=== PATIENT | female | born 1940 | race Caucasian/White ===

== ENCOUNTER 2016-11-03 07:41 | Day surgery (SDC) | payer MEDICARE, OTHER ==
[2016-11-03] MEDS ORDERED: fentaNYL 100 MCG/2 ML SDV ONE (08:13)
[2016-11-03] MEDS ORDERED: Propofol 200 MG/20 ML SDV ONE (08:13)
[2016-11-03] MEDS ORDERED: Lactated Ringers 1,000 ML IV SCH (08:30)
[2016-11-03 10:42] VITALS: BP 152/78
--- NOTE | 2016-11-04 07:14 | OR ---
DATE OF PROCEDURE: 11/03/2016 PREOPERATIVE DIAGNOSIS: History of colon polyps. POSTOPERATIVE DIAGNOSES: Diverticulosis and a small rectal polyp. PROCEDURE PERFORMED: Colonoscopy to the cecum with biopsy resection of a small rectal polyp. SURGEON: Dayo Monaco MD. ANESTHESIA: IV anesthesia with monitored anesthesia care. INDICATION: This is a 76-year-old white female who is referred for a colonoscopy because of a history of colon polyps. She says her last colonoscopic exam was done five years ago. I counseled her for the procedure including risks and alternatives, and she gave her informed consent to proceed. DESCRIPTION OF PROCEDURE: The patient was placed in the left lateral decubitus position. IV anesthesia was administered by the Anesthesia Service. Time-out was held. A rectal exam was performed, which was unremarkable. The flexible video Olympus colonoscope was introduced through her anus, up her rectum, and out her colon all way to the cecum. En route, we saw multiple left-sided diverticula. There was no bleeding or inflammation associated with any of them. Once the cecum was reached, the scope was slowly withdrawn examining the mucosa throughout. No additional mucosal abnormalities were noted until we reached the rectum. Here a small polyp was seen which was removed with the biopsy forceps. The scope was retroflexed in the rectum with the distal rectum appearing unremarkable save for some hemorrhoidal tissues. The scope was straightened and removed. She tolerated the procedure well. Dayo Monaco MD /[id number] MTDD
== END 2016-11-03 10:57 | disposition home or self-care (01) ==
LOC: JP.SDS 07:41
PROVIDERS: ATTEND Surgery
PROC: 0DBP8ZX Excision of Rectum, Via Natural or Artificial Opening Endoscopic, Diagnostic (ICD-10-PCS; principal; 2016-11-03)
DX: Z86.010 Personal history of colon polyps (principal); K57.30 Diverticulosis of large intestine without perforation or abscess without bleeding
CPT/HCPCS: 45380; J2704; J3010; J7120; 88305

== ENCOUNTER 2017-09-08 21:50 | Inpatient (IN) | payer MEDICARE, OTHER ==
[2017-09-08] MEDS ORDERED: Sodium Chloride 0.9% 1,000 ML IV SCH (23:15)
--- NOTE | 2017-09-08 23:16 | EDM.PDOC ---
ED HPI GENERAL MEDICAL PROBLEM - General Chief Complaint: Gastrointestinal Problem Stated Complaint: STOMACH CRAMPS/PASSING BLOOD Time Seen by Provider: 09/08/17 23:16 Source of Information: Reports: Patient History Limitations: Reports: No Limitations - History of Present Illness INITIAL COMMENTS - FREE TEXT/NARRATIVE: Pt arrived with a history of a bloody stool this afternoon nd she now has alot of lower abdomanal pain. She has not vomited. She has not had GI bleeding in the past. Onset: Today Duration: Hour(s): Location: Reports: Abdomen Associated Symptoms: Reports: No Other Symptoms - Related Data Allergies Allergy/AdvReac Type Severity Reaction Status Date / Time celecoxib [From Celebrex] Allergy Severe Airway Verified 09/08/17 22:52 Tightness Sulfa (Sulfonamide Allergy Severe Airway Verified 09/08/17 22:52 Antibiotics) Tightness Home Meds: Home Meds Captopril/Hydrochlorothiazide [Captopril-HCTZ 50-15 MG] 1 tab PO DAILY 03/25/13 [History] Levothyroxine [Synthroid] 88 mcg PO DAILY 03/25/13 [History] Naproxen Sodium [Aleve] 220 mg PO DAILY 03/25/13 [History] Simvastatin 20 mg PO BEDTIME 03/25/13 [History] metFORMIN [Glucophage] 500 mg PO DAILY 03/25/13 [History] Aspirin 81 mg PO DAILY 06/18/13 [History] Cholecalciferol 1,000 units PO DAILY 06/18/13 [History] Ciclopirox/Ure/Camph/Menth/Euc [Ciclopirox 8% Treatment Kit] 1 applic TOP BEDTIME 11/01/16 [History] Liraglutide [Saxenda] 1.2 mg SQ DAILY 11/01/16 [History] Furosemide [Lasix] 1 tab PO DAILY 09/08/17 [History] Past Medical History HEENT History: Reports: None Cardiovascular History: Reports: High Cholesterol, Hypertension Gastrointestinal History: Reports: Colon Polyp Genitourinary History: Reports: None [employer] CON[employer] History: Reports: Musculoskeletal History: Reports: Arthritis Neurological History: Reports: Other (See Below) Other Neuro History: Belles Palsy Endocrine/Metabolic History: Reports: Diabetes, Type II, Hypothyroidism, Obesity /BMI 30+ Oncologic (Cancer) History: Reports: Malignant Melanoma Dermatologic History: Reports: Melanoma - Infectious Disease History Infectious Disease History: Reports: Measles - Past Surgical History HEENT Surgical History: Reports: Cataract Surgery Cardiovascular Surgical History: Reports: None GI Surgical History: Reports: Colonoscopy Female Surgical History: Reports: D&C Neurological Surgical History: Reports: None Musculoskeletal Surgical History: Reports: Other (See Below) Other Musculoskeletal Surgeries/Procedures:: surgery right thumb 9 years ago Oncologic Surgical History: Reports: Other (See Below) Other Oncologic Surgeries/Procedures: lymph nodes removed under right arm with melanoma Dermatological Surgical History: Reports: Skin Biopsy Social & Family History - Family History Family Medical History: Noncontributory - Tobacco Use Smoking Status *Q: Never Smoker - Caffeine Use Caffeine Use: Reports: Coffee - Recreational Drug Use Recreational Drug Use: No ED ROS GENERAL - Review of Systems Review Of Systems: See Below Constitutional: Reports: Diaphoresis HEENT: Reports: No Symptoms Respiratory: Reports: No Symptoms Cardiovascular: Reports: No Symptoms Endocrine: Reports: No Symptoms GI/Abdominal: Reports: Abdominal Pain, Bloody Stool, Decreased Appetite : Reports: No Symptoms Musculoskeletal: Reports: No Symptoms Skin: Reports: No Symptoms Neurological: Reports: No Symptoms ED EXAM, GI/ABD - Physical Exam Exam: See Below Text/Narrative:: Pt arrived with acute lower abdomnal pain. She states she had a bloody stool this afternoon. She had an episode this am that she was sitting on the stool and she passed out. . She has severe lower abdomanal pain . This pain does seem more severe and she is more tender on the rt. Exam Limited By: No Limitations General Appearance: Alert, Moderate Distress Ears: Normal TMs Nose: Normal Inspection Throat/Mouth: Normal Inspection Neck: Normal Inspection Respiratory/Chest: No Respiratory Distress Cardiovascular: Regular Rate, Rhythm GI/Abdominal Exam: Tender, Other (more marked on the rt than the left. ) (Female) Exam: Deferred Rectal (Female) Exam: Deferred Back Exam: Normal Inspection Extremities: Normal Inspection Neurological: Alert, Oriented, Normal Cognition Psychiatric: Normal Affect Course - Vital Signs Last Recorded V/S: Last Vital Signs Temp 37.3 C 09/09/17 00:44 Pulse 89 09/09/17 00:44 Resp 20 09/09/17 00:44 BP 127/64 09/09/17 00:44 Pulse Ox 93 L 09/09/17 00:44 - Orders/Labs/Meds Orders: Active Orders 24 hr Category Date Time Status Abdomen Pelvis w Cont [CT] Stat Exams 09/08/17 23:42 Stop Req Abdomen Pelvis w Cont [CT] Stat Exams 09/09/17 00:07 Taken OCCULT BLOOD DIAGNOSTIC [OP] Stat Lab 09/08/17 23:15 Ordered UA W/MICROSCOPIC [URIN] Urgent Lab 09/08/17 23:03 Ordered Sodium Chloride 0.9% [Normal Saline] 1,000 ml Med 09/08/17 23:15 Active IV ASDIRECTED Sodium Chloride 0.9% [Normal Saline] 100 ml Med 09/09/17 00:15 Active IV ASDIRECTED Medication Orders Acetaminophen (Tylenol) 650 mg PO Q4H PRN PRN Reason: Pain (Mild 1-3)/fever Hydrocodone Bitart/Acetaminophen ([place] 325-5 Mg) 1 tab PO Q4H PRN PRN Reason: Pain (moderate 4-6) Albuterol (Proventil Neb Soln) 2.5 mg NEB Q4H PRN PRN Reason: Shortness Of Breath/wheezing Furosemide (Lasix) 20 mg PO DAILY [facility] Sodium Chloride (Normal Saline) 1,000 mls @ 999 mls/hr IV ASDIRECTED [facility] Last Admin: 09/08/17 23:28 Dose: 999 mls/hr Sodium Chloride (Normal Saline) 100 mls @ 3 mls/sec IV ASDIRECTED [facility] Last Admin: 09/09/17 00:35 Dose: 3 mls/sec Sodium Chloride (Normal Saline) 1,000 mls @ 125 mls/hr IV ASDIRECTED [facility] Last Admin: 09/09/17 01:26 Dose: 125 mls/hr Ciprofloxacin/Dextrose 400 mg/ (Premix) 200 mls @ 200 mls/hr IV Q12H [facility] Metronidazole 500 mg/ Premix 100 mls @ 100 mls/hr IV Q8H [facility] Last Admin: 09/09/17 01:27 Dose: 100 mls/hr Levothyroxine Sodium (Synthroid) 88 mcg PO DAILY [facility] Liraglutide (Victoza) 1.2 mg SUBCUT DAILY [facility] Lorazepam (Ativan) 1 mg IV Q6H PRN PRN Reason: Nausea/Vomiting Morphine Sulfate (Morphine) 2 mg IVPUSH Q2H PRN PRN Reason: Pain (severe 7-10) Non-Formulary Medication (Captopril/Hydrochlorothiazide [Captopril-Hctz 50-15 Mg ]) 1 tab PO DAILY [facility] Ondansetron HCl (Zofran Odt) 4 mg PO Q6H PRN PRN Reason: Nausea able to take PO Pantoprazole Sodium (Protonix Iv) 40 mg IV Q12H [facility] Last Admin: 09/09/17 01:27 Dose: 40 mg Zolpidem Tartrate (Ambien) 5 mg PO BEDTIME PRN PRN Reason: Sleep Labs: Laboratory Tests 09/08/17 09/08/17 09/08/17 Range/Units 23:14 23:14 23:14 WBC 15.0 H (4.5-11.0) K/uL RBC 4.75 (3.30-5.50) M/uL Hgb 14.0 (12.0-15.0) g/dL Hct 41.8 (36.0-48.0) % MCV 88 (80-98) fL MCH 30 (27-31) pg MCHC 34 (32-36) % Plt Count 303 (150-400) K/uL Neut % (Auto) 80 H (36-66) % Lymph % (Auto) 10 L (24-44) % [place] % (Auto) 9 H (2-6) % Eos % (Auto) 1 L (2-4) % Baso % (Auto) 0 (0-1) % Sodium 137 L (140-148) mmol/L Potassium 3.6 (3.6-5.2) mmol/L Chloride 100 (100-108) mmol/L Carbon Dioxide 29 (21-32) mmol/L Anion Gap 11.6 (5.0-14.0) mmol/L BUN 18 (7-18) mg/dL Creatinine 1.0 (0.6-1.0) mg/dL Est Cr Clr Drug Dosing 33.30 mL/min Estimated GFR (MDRD) 54 L (>60) Glucose 150 H (74-106) mg/dL Calcium 8.4 L (8.5-10.1) mg/dL Total Bilirubin 0.8 (0.2-1.0) mg/dL AST 25 (15-37) U/L ALT 33 (12-78) U/L Alkaline Phosphatase 77 (46-116) U/L C-Reactive Protein 2.05 H (0.0-0.3) mg/dL Total Protein 7.0 (6.4-8.2) g/dL Albumin 3.2 L (3.4-5.0) g/dL Globulin 3.8 H (2.3-3.5) g/dL Albumin/Globulin Ratio 0.8 L (1.2-2.2) Meds: Medications Generic Name Dose Route Start Last Admin Trade Name Freq PRN Reason Stop Dose Admin Acetaminophen 650 mg 09/09/17 01:00 Tylenol PO Q4H PRN Pain (Mild 1-3)/fever Hydrocodone Bitart/Acetaminophen 1 tab 09/09/17 01:00 [place] 325-5 Mg PO Q4H PRN Pain (moderate 4-6) Albuterol 2.5 mg 09/09/17 01:00 Proventil Neb Soln NEB Q4H PRN Shortness Of Breath/wheezing Furosemide 20 mg 09/09/17 09:00 Lasix PO DAILY [facility] Sodium Chloride 1,000 mls @ 999 mls/hr 09/08/17 23:15 09/08/17 23:28 Normal Saline IV 999 mls/hr ASDIRECTED [facility] Administration Sodium Chloride 100 mls @ 3 mls/sec 09/09/17 00:15 09/09/17 00:35 Normal Saline IV 3 mls/sec ASDIRECTED [facility] Administration Sodium Chloride 1,000 mls @ 125 mls/hr 09/09/17 01:00 09/09/17 01:26 Normal Saline IV 125 mls/hr ASDIRECTED [facility] Administration Ciprofloxacin/Dextrose 400 mg/ 200 mls @ 200 mls/hr 09/09/17 01:15 Premix IV Q12H [facility] Metronidazole 500 mg/ Premix 100 mls @ 100 mls/hr 09/09/17 01:15 09/09/17 01: 27 IV 100 mls/hr Q8H [facility] Administration Levothyroxine Sodium 88 mcg 09/09/17 09:00 Synthroid PO DAILY [facility] Liraglutide 1.2 mg 09/09/17 09:00 Victoza SUBCUT DAILY [facility] Lorazepam 1 mg 09/09/17 01:00 Ativan IV Q6H PRN Nausea/Vomiting Morphine Sulfate 2 mg 09/09/17 01:00 Morphine IVPUSH Q2H PRN Pain (severe 7-10) Non-Formulary Medication 1 tab 09/09/17 09:00 Captopril/Hydrochlorothiazide [Captopril-Hctz 50-15 Mg] PO DAILY [facility] Ondansetron HCl 4 mg 09/09/17 01:00 Zofran Odt PO Q6H PRN Nausea able to take PO Pantoprazole Sodium 40 mg 09/09/17 01:00 09/09/17 01:27 Protonix Iv IV 40 mg Q12H [facility] Administration Zolpidem Tartrate 5 mg 09/09/17 01:00 Ambien PO BEDTIME PRN Sleep Discontinued Medications Generic Name Dose Route Start Last Admin Trade Name Freq PRN Reason Stop Dose Admin Hydromorphone HCl 0.5 mg 09/08/17 23:43 09/08/17 23:54 Dilaudid IVPUSH 09/08/17 23:44 0.5 mg ONETIME ONE Administration Iopamidol 150 ml 09/09/17 00:15 09/09/17 00:45 Isovue-300 (61%) IV 150 ml . DIRECTED [facility] Administration Ondansetron HCl 4 mg 09/08/17 23:43 09/08/17 23:54 Zofran IVPUSH 09/08/17 23:44 4 mg ONETIME ONE Administration - Re-Assessments/Exams Free Text/Narrative Re-Assessment/Exam: 09/09/17 01:37 pt has a elevated wbc. Her cat scan did reveal colitis or inflamitory bowel diseas.e Departure - Departure Time of Disposition: 01:38 Disposition: Admitted As Inpatient 65 Condition: Fair Clinical Impression: Bleeding, Colitis - Discharge Information - My Orders Last 24 Hours: My Active Orders 09/08/17 23:03 UA W/MICROSCOPIC [URIN] Urgent 09/08/17 23:15 OCCULT BLOOD DIAGNOSTIC [OP] Stat Sodium Chloride 0.9% [Normal Saline] 1,000 ml IV ASDIRECTED 09/08/17 23:42 Abdomen Pelvis w Cont [CT] Stat 09/09/17 00:07 Abdomen Pelvis w Cont [CT] Stat 09/09/17 00:15 Sodium Chloride 0.9% [Normal Saline] 100 ml IV ASDIRECTED - Assessment/Plan Last 24 Hours: My Active Orders 09/08/17 23:03 UA W/MICROSCOPIC [URIN] Urgent 09/08/17 23:15 OCCULT BLOOD DIAGNOSTIC [OP] Stat Sodium Chloride 0.9% [Normal Saline] 1,000 ml IV ASDIRECTED 09/08/17 23:42 Abdomen Pelvis w Cont [CT] Stat 09/09/17 00:07 Abdomen Pelvis w Cont [CT] Stat 09/09/17 00:15 Sodium Chloride 0.9% [Normal Saline] 100 ml IV ASDIRECTED
[2017-09-08] MEDS ORDERED: HYDROmorphone 0.5 MG/0.5 ML Syringe IVPUSH ONE (23:43)
[2017-09-08] MEDS ORDERED: Ondansetron 4 MG/2 ML SDV IVPUSH ONE (23:43)
[2017-09-09] MEDS ORDERED: Sodium Chloride 0.9% 100 ML IV SCH (00:15)
[2017-09-09] MEDS ORDERED: Iopamidol 612 MG/ML 150 ML Bottle IV SCH (00:15)
--- NOTE | 2017-09-09 00:48 | PCM.HP ---
H&P History of Present Illness - General Date of Service: 09/09/17 Admit Problem/Dx: Admission Diagnosis/Problem Admission Diagnosis/Problem Gastrointestinal hemorrhage Source of Information: Patient (00), Family () History Limitations: Reports: No Limitations - History of Present Illness Initial Comments - Free Text/Narative: Gastrointestinal hemorrhage: This is a 77-year-old feel presents emergency room with her , reports this morning while woke up at 7:30am had severe stomach pain and cramping, went to the bathroom to sit on the toilet and fainted did not occur any injury from the fainting. Stool at that time was normal color. Then at 8 PM this evening and had a bloody stool. Her stomach feels painful, cramping, and mild nausea. She reports no vomiting. Reports colonoscopy 2 years ago with polyps. Reports no cancer. Onset of Symptoms: Reports: Today, Sudden Symptom Onset Date: 09/08/17 Duration of Symptoms: Reports: Hour(s): Location: Reports: Abdomen Quality: Reports: Other (Cramping, pain.) Severity: Severe Improves with: Reports: None Worsens with: Reports: None Context: Reports: Other (Rectal bleeding.) Associated Symptoms: Reports: Nausea/Vomiting - Related Data Allergies/Adverse Reactions: Allergies Allergy/AdvReac Type Severity Reaction Status Date / Time celecoxib [From Celebrex] Allergy Severe Airway Verified 09/08/17 22:52 Tightness Sulfa (Sulfonamide Allergy Severe Airway Verified 09/08/17 22:52 Antibiotics) Tightness Home Medications: Home Meds Captopril/Hydrochlorothiazide [Captopril-HCTZ 50-15 MG] 1 tab PO DAILY 03/25/13 [History] Levothyroxine [Synthroid] 88 mcg PO DAILY 03/25/13 [History] Naproxen Sodium [Aleve] 220 mg PO DAILY 03/25/13 [History] Simvastatin 20 mg PO BEDTIME 03/25/13 [History] metFORMIN [Glucophage] 500 mg PO DAILY 03/25/13 [History] Aspirin 81 mg PO DAILY 06/18/13 [History] Cholecalciferol 1,000 units PO DAILY 06/18/13 [History] Ciclopirox/Ure/Camph/Menth/Euc [Ciclopirox 8% Treatment Kit] 1 applic TOP BEDTIME 11/01/16 [History] Liraglutide [Saxenda] 1.2 mg SQ DAILY 11/01/16 [History] Furosemide [Lasix] 1 tab PO DAILY 09/08/17 [History] Past Medical History HEENT History: Reports: None Cardiovascular History: Reports: High Cholesterol, Hypertension Gastrointestinal History: Reports: Colon Polyp Genitourinary History: Reports: None 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: Musculoskeletal History: Reports: Arthritis Neurological History: Reports: Other (See Below) Other Neuro History: Belles Palsy Endocrine/Metabolic History: Reports: Diabetes, Type II, Hypothyroidism, Obesity /BMI 30+ Oncologic (Cancer) History: Reports: Malignant Melanoma Dermatologic History: Reports: Melanoma - Infectious Disease History Infectious Disease History: Reports: Measles - Past Surgical History HEENT Surgical History: Reports: Cataract Surgery Cardiovascular Surgical History: Reports: None GI Surgical History: Reports: Colonoscopy Female Surgical History: Reports: D&C Neurological Surgical History: Reports: None Musculoskeletal Surgical History: Reports: Other (See Below) Other Musculoskeletal Surgeries/Procedures:: surgery right thumb 9 years ago Oncologic Surgical History: Reports: Other (See Below) Other Oncologic Surgeries/Procedures: lymph nodes removed under right arm with melanoma Dermatological Surgical History: Reports: Skin Biopsy Social & Family History - Family History Family Medical History: Noncontributory - Tobacco Use Smoking Status *Q: Never Smoker - Caffeine Use Caffeine Use: Reports: Coffee - Recreational Drug Use Recreational Drug Use: No - Living Situation & Occupation Living situation: Reports: (Lives with her who is a senior network security architect in [place], [place]. Has 6 adult children, her daughter Abi is a RN nurse on second floor at [employer]) H&P Review of Systems - Review of Systems: Review Of Systems: See Below General: Reports: Fatigue HEENT: Reports: No Symptoms Pulmonary: Reports: No Symptoms Cardiovascular: Reports: No Symptoms Gastrointestinal: Reports: Abdominal Pain, Bloody Stool, Decreased Appetite, Nausea Genitourinary: Reports: No Symptoms Musculoskeletal: Reports: Back Pain (Low back pain) Skin: Reports: No Symptoms Psychiatric: Reports: No Symptoms Neurological: Reports: No Symptoms Hematologic/Lymphatic: Reports: No Symptoms Immunologic: Reports: No Symptoms Exam - Exam Exam: See Below - Vital Signs Vital Signs: Last Vital Signs Temp 37.3 C 09/08/17 22:55 Pulse 95 09/08/17 22:55 Resp 21 H 09/08/17 22:55 BP 145/72 H 09/08/17 22:55 Pulse Ox 95 09/08/17 22:55 Weight: 146.964 kg - Exam General: Alert, Oriented, 4 HEENT: PERRLA, Hearing Intact, Mucosa Moist & [place]holz, Nares Patent, Normal Nasal Septum, Posterior Pharynx Clear, Conjunctiva Clear, EOMI, EACs Clear, TMs Clear Neck: Supple Lungs: Clear to Auscultation, Normal Respiratory Effort Cardiovascular: Regular Rate, Regular Rhythm GI/Abdominal Exam: Normal Bowel Sounds, Soft, Tender (Generalized more pronounced in the left mid to lower abdomen. difficult to assess due to large size of abdomen and pannus.) (Female) Exam: Deferred Rectal (Female) Exam: Bloody Stool, Heme + Stool (Her children. Her rectal exam just notes any hemorrhoids or anything). No: Hemorrhoids Back Exam: Normal Inspection, Full Range of Motion Extremities: Normal Range of Motion, Non-Tender, Pedal Edema (Bilateral 2+ pitting edema, chronic.) Skin: Other (Lower legs with dry cracked skin. No signs of localized infection.) Neurological: Strength Equal Bilateral, Normal Speech, Normal Tone Neuro Extensive - Mental Status: Alert, Oriented x3, Normal Mood/Affect, Normal Cognition, Memory Intact Neuro Extensive - Motor, Sensory, Reflexes: CN II-XII Intact Psychiatric: Alert, Normal Affect, Normal Mood - Patient Data Lab Results Last 24 hrs: Laboratory Results - last 24 hr 09/08/17 09/08/17 09/08/17 Range/Units 23:14 23:14 23:14 WBC 15.0 H (4.5-11.0) K/uL RBC 4.75 (3.30-5.50) M/uL Hgb 14.0 (12.0-15.0) g/dL Hct 41.8 (36.0-48.0) % MCV 88 (80-98) fL MCH 30 (27-31) pg MCHC 34 (32-36) % Plt Count 303 (150-400) K/uL Neut % (Auto) 80 H (36-66) % Lymph % (Auto) 10 L (24-44) % [place] % (Auto) 9 H (2-6) % Eos % (Auto) 1 L (2-4) % Baso % (Auto) 0 (0-1) % Sodium 137 L (140-148) mmol/L Potassium 3.6 (3.6-5.2) mmol/L Chloride 100 (100-108) mmol/L Carbon Dioxide 29 (21-32) mmol/L Anion Gap 11.6 (5.0-14.0) mmol/L BUN 18 (7-18) mg/dL Creatinine 1.0 (0.6-1.0) mg/dL Est Cr Clr Drug Dosing 33.30 mL/min Estimated GFR (MDRD) 54 L (>60) Glucose 150 H (74-106) mg/dL Calcium 8.4 L (8.5-10.1) mg/dL Total Bilirubin 0.8 (0.2-1.0) mg/dL AST 25 (15-37) U/L ALT 33 (12-78) U/L Alkaline Phosphatase 77 (46-116) U/L C-Reactive Protein 2.05 H (0.0-0.3) mg/dL Total Protein 7.0 (6.4-8.2) g/dL Albumin 3.2 L (3.4-5.0) g/dL Globulin 3.8 H (2.3-3.5) g/dL Albumin/Globulin Ratio 0.8 L (1.2-2.2) Result Diagrams: 09/08/17 23:14 09/08/17 23:14 Asher Results Last 24 hrs: Microbiology 09/08/17 23:15 Stool Occult Blood (ASHER) - Final Stool / Feces - Problem List (1) Gastrointestinal bleed SNOMED Code(s): 40088754 ICD Code: K92.2 - GASTROINTESTINAL HEMORRHAGE, UNSPECIFIED Status: Acute Priority: High Current Visit: Yes Qualifiers: GI bleed type/associated pathology: unspecified gastrointestinal hemorrhage type Qualified Code(s): K92.2 - Gastrointestinal hemorrhage, unspecified (2) Diabetes mellitus type 2 in obese SNOMED Code(s): 16665691 ICD Code: E11.69 - TYPE 2 DIABETES MELLITUS WITH OTHER SPECIFIED COMPLICATION ; E66.9 - OBESITY, UNSPECIFIED Status: Acute Priority: Medium Current Visit: Yes (3) Colitis SNOMED Code(s): 85174153 ICD Code: K52.9 - NONINFECTIVE GASTROENTERITIS AND COLITIS, UNSPECIFIED Status: Acute Priority: High Current Visit: Yes Problem List Initiated/Reviewed/Updated: Yes Orders Last 24hrs: Active Orders 24 hr Category Date Time Status Patient Status Manage Transfer [TRANSFER] Routine ADT 09/09/17 00:31 Ordered Abdomen Pelvis w Cont [CT] Stat Exams 09/08/17 23:42 Stop Req Abdomen Pelvis w Cont [CT] Stat Exams 09/09/17 00:07 Ordered OCCULT BLOOD DIAGNOSTIC [OP] Stat Lab 09/08/17 23:15 Ordered UA W/MICROSCOPIC [URIN] Urgent Lab 09/08/17 23:03 Ordered Iopamidol [Isovue-300 (61%)] Med 09/09/17 00:15 Active 150 ml IV . DIRECTED Sodium Chloride 0.9% [Normal Saline] 1,000 ml Med 09/08/17 23:15 Active IV ASDIRECTED Sodium Chloride 0.9% [Normal Saline] 100 ml Med 09/09/17 00:15 Active IV ASDIRECTED Resuscitation Status Routine Resus Stat 09/09/17 00:33 Ordered Medication Orders Sodium Chloride (Normal Saline) 1,000 mls @ 999 mls/hr IV ASDIRECTED [facility] Last Admin: 09/08/17 23:28 Dose: 999 mls/hr Sodium Chloride (Normal Saline) 100 mls @ 3 mls/sec IV ASDIRECTED [facility] Iopamidol (Isovue-300 (61%)) 150 ml IV . DIRECTED [facility] Assessment/Plan Comment:: ASSESSMENT / PLAN Gastrointestinal hemorrhage: This is a 77-year-old feel presents emergency room with her , reports this morning while woke up at 7:30am had severe stomach pain and cramping, went to the bathroom to sit on the toilet and fainted did not occur any injury from the fainting. Stool at that time was normal color. Then at 8 PM this evening and had a bloody stool. Her stomach feels painful, cramping, and mild nausea. She reports no vomiting. Reports colonoscopy 2 years ago with polyps. Reports no cancer. Labs: WBC 15.0, hemoglobin 14.0, platelets 303, chemistries Na137, K+3.6, cl 100 , anion gap 11.6, bun 18, cr 1.0, GFR 54, glucose 150, protien 7, crp 2.05, Ca++ 8.4, ast 25, alt 33, alk phos 77, albumin 3.2, globulin 3.8, fecal occult stool positive Imaging : CT abdomen pelvis: Impression; moderate concentric wall thickening is present in the splenic flexure flexure, descending colon and proximal sigmoid colon. Findings likely due to infectious colitis or inflammatory bowel disease. Ischemic bowel disease can be considered in the appropriate clinical setting. The appendix is fluid-filled and distended measuring 13 mm. No wall thickening or surrounding inflammatory changes seen. A mucocele of the appendix is suspected, GI Bleed -Admit to [address] [place] [address] for further monitoring -IV Fluids for rehydration NS at 125 mL per hour -IV Protonix 40 mg every 12 hours -telemetry -Advise to notify nurses of any chest pain or other symptoms -Consult to Surgery Service for colonscopy and EGD -And a.m. labs: CBC, BMP Diabetes Type 2 -hold Metformin -daily blood glucose Colitis, inflammatory bowel disease -IV Cipro 400 mg every 12 hours -IV metronidazole 500 mg every 8 hours Maintenance issues -Orders home meds: order -Nutrition: NPO -Acharya catheter not indicated at this time -DVT: SCD -PPI: IV Protonix 40mg daily -consult OT for discharge planning -consult Spiritual CODE STATUS: FULL CODE Admission status: Admit to [address] [place] [address] Admission justification. This patient will be admitted for inpatient services and is medically appropriate meeting medical necessity for inpatient admission as outlined in my documentation. I reasonably expect the patient will require inpatient services that span. Time over 2 midnights. I reasonably expect this patient to be discharged or transferred within 96 hours after admission to the critical access hospital. Disposition: home Primary care provider: Salvador Mccartney Hospitalist: Dr. Hall
[2017-09-09] MEDS ORDERED: LORazepam 2 MG/ML SDV IV PRN (01:00)
[2017-09-09] MEDS ORDERED: Acetaminophen/HYDROcodone 325-5 MG Tab PO PRN (01:00)
[2017-09-09] MEDS ORDERED: Zolpidem 5 MG Tab PO PRN (01:00)
[2017-09-09] MEDS ORDERED: Morphine 2 MG/ML Syringe IVPUSH PRN (01:00)
[2017-09-09] MEDS ORDERED: Albuterol 0.083% 2.5 MG/3 ML Neb Soln NEB PRN (01:00)
[2017-09-09] MEDS ORDERED: Ondansetron 4 MG Tab.DIS PO PRN (01:00)
[2017-09-09] MEDS ORDERED: Acetaminophen 325 MG Tab PO PRN ×2 (01:00→05:34)
[2017-09-09] MEDS ORDERED: Ciprofloxacin in D5W 400 MG in Premix Bag 1 BAG IV SCH ×2 (01:15)
[2017-09-09] MEDS ORDERED: metroNIDAZOLE/Normal Saline 500 MG in Premix Bag 1 BAG IV SCH (01:15)
[2017-09-09] MEDS: Sodium Chloride 0.9% 1,000 ML IV SCH ×3 (01:26→22:53)
[2017-09-09] MEDS: Pantoprazole 40 MG Vial IV SCH ×2 (01:27→13:35)
[2017-09-09] MEDS ORDERED: Liraglutide (rDNA Origin) 0.6 MG/0.1 ML 3 ML Pen SUBCUT SCH ×2 (09:00)
[2017-09-09] MEDS ORDERED: Levothyroxine 88 MCG Tab PO SCH (09:00)
[2017-09-09] MEDS: Levothyroxine 88 MCG Tab PO SCH (10:44)
[2017-09-09] MEDS: metroNIDAZOLE/Normal Saline 500 MG in Premix Bag 1 BAG IV SCH ×2 (10:47→18:24)
[2017-09-09] MEDS: Hydrochlorothiazide 12.5 MG Cap PO SCH (10:47)
[2017-09-09] MEDS: Furosemide 20 MG Tab PO SCH (10:47)
[2017-09-09] MEDS: HYDROCHLOROTHIAZIDE PO SCH (10:47)
[2017-09-09] MEDS: CAPTOPRIL PO SCH (10:47)
[2017-09-09] MEDS: [UNRECOGNIZED DRUG - OTHER] PO SCH (10:47)
[2017-09-09] MEDS ORDERED: Glucose Gel 15 GM in 37.5 GM Tube PO PRN (13:13)
[2017-09-09] MEDS ORDERED: 50% Dextrose in Water 50 ML Syringe IV PRN (13:13)
--- NOTE | 2017-09-09 13:13 | PCM.PN ---
- General Info Date of Service: 09/09/17 Subjective Update: Ms. Bay is a 77-year-old woman who is admitted through the emergency department last night with abdominal pain and bloody diarrhea. Pain it started earlier in the day and progressively came worse during the day and associated with bloody diarrhea so she came in for further evaluation. She was found to be hemodynamically stable, hemoglobin was adequate, CT scan showed an area of inflammation in the descending colon extending into the sigmoid colon. She has been given IV fluids as well as IV antibiotic therapy with ciprofloxacin and metronidazole. Pain is modestly improved and she's had no further bloody stools since admission. Functional Status: Reports: Pain Controlled, Urinating - Review of Systems General: Reports: Weakness. Denies: Fever, Chills Pulmonary: Reports: No Symptoms Cardiovascular: Reports: No Symptoms Gastrointestinal: Reports: Abdominal Pain, Decreased Appetite, Diarrhea, Hematochezia. Denies: Nausea, Vomiting Genitourinary: Reports: No Symptoms - Patient Data Vitals - Most Recent: Last Vital Signs Temp 96.6 F 09/09/17 10:56 Pulse 79 09/09/17 10:56 Resp 16 09/09/17 10:56 BP 120/43 L 09/09/17 10:56 Pulse Ox 95 09/09/17 10:56 Weight - Most Recent: 324 lb 0.002 oz I&O - Last 24 Hours: Intake & Output 09/08/17 09/09/17 09/09/17 22:59 06:59 14:59 Intake Total 575 Output Total 400 400 Balance 175 -400 Lab Results Last 24 Hours: Laboratory Results - last 24 hr 09/08/17 09/08/17 09/08/17 Range/Units 23:03 23:14 23:14 WBC 15.0 H (4.5-11.0) K/uL RBC 4.75 (3.30-5.50) M/uL Hgb 14.0 (12.0-15.0) g/dL Hct 41.8 (36.0-48.0) % MCV 88 (80-98) fL MCH 30 (27-31) pg MCHC 34 (32-36) % Plt Count 303 (150-400) K/uL Neut % (Auto) 80 H (36-66) % Lymph % (Auto) 10 L (24-44) % [place] % (Auto) 9 H (2-6) % Eos % (Auto) 1 L (2-4) % Baso % (Auto) 0 (0-1) % Sodium (140-148) mmol/L Potassium (3.6-5.2) mmol/L Chloride (100-108) mmol/L Carbon Dioxide (21-32) mmol/L Anion Gap (5.0-14.0) mmol/L BUN (7-18) mg/dL Creatinine (0.6-1.0) mg/dL Est Cr Clr Drug Dosing mL/min Estimated GFR (MDRD) (>60) Glucose (74-106) mg/dL Calcium (8.5-10.1) mg/dL Total Bilirubin (0.2-1.0) mg/dL AST (15-37) U/L ALT (12-78) U/L Alkaline Phosphatase (46-116) U/L C-Reactive Protein 2.05 H (0.0-0.3) mg/dL Total Protein (6.4-8.2) g/dL Albumin (3.4-5.0) g/dL Globulin (2.3-3.5) g/dL Albumin/Globulin Ratio (1.2-2.2) Urine Color Yellow Urine Appearance Clear Urine pH 7.0 (4.5-8.0) Ur Specific Dafter 1.005 L (1.008-1.030) Urine Protein Negative (NEGATIVE) mg/dL Urine Glucose (UA) Normal (NEGATIVE) mg/dL Urine Ketones Negative (NEGATIVE) mg/dL Urine Occult Blood Negative (NEGATIVE) Urine Nitrite Negative (NEGATIVE) Urine Bilirubin Negative (NEGATIVE) Urine Urobilinogen Normal (NORMAL) mg/dL Ur Leukocyte Esterase Negative (NEGATIVE) Urine RBC Not seen (0-5) Urine WBC Not seen (0-5) Ur Epithelial Cells Not seen Amorphous Sediment Not seen Urine Bacteria Not seen Urine Mucus Not seen 09/08/17 09/09/17 09/09/17 Range/Units 23:14 04:45 05:50 WBC 13.9 H (4.5-11.0) K/uL RBC 4.46 (3.30-5.50) M/uL Hgb 13.3 (12.0-15.0) g/dL Hct 39.6 (36.0-48.0) % MCV 89 (80-98) fL MCH 30 (27-31) pg MCHC 34 (32-36) % Plt Count 278 (150-400) K/uL Neut % (Auto) 77 H (36-66) % Lymph % (Auto) 11 L (24-44) % [place] % (Auto) 11 H (2-6) % Eos % (Auto) 1 L (2-4) % Baso % (Auto) 0 (0-1) % Sodium 137 L 139 L (140-148) mmol/L Potassium 3.6 3.9 (3.6-5.2) mmol/L Chloride 100 102 (100-108) mmol/L Carbon Dioxide 29 27 (21-32) mmol/L Anion Gap 11.6 13.9 (5.0-14.0) mmol/L BUN 18 15 (7-18) mg/dL Creatinine 1.0 1.0 (0.6-1.0) mg/dL Est Cr Clr Drug Dosing 33.30 33.30 mL/min Estimated GFR (MDRD) 54 L 54 L (>60) Glucose 150 H 161 H (74-106) mg/dL Calcium 8.4 L 7.8 L (8.5-10.1) mg/dL Total Bilirubin 0.8 (0.2-1.0) mg/dL AST 25 (15-37) U/L ALT 33 (12-78) U/L Alkaline Phosphatase 77 (46-116) U/L C-Reactive Protein (0.0-0.3) mg/dL Total Protein 7.0 (6.4-8.2) g/dL Albumin 3.2 L (3.4-5.0) g/dL Globulin 3.8 H (2.3-3.5) g/dL Albumin/Globulin Ratio 0.8 L (1.2-2.2) Urine Color Urine Appearance Urine pH (4.5-8.0) Ur Specific Dafter (1.008-1.030) Urine Protein (NEGATIVE) mg/dL Urine Glucose (UA) (NEGATIVE) mg/dL Urine Ketones (NEGATIVE) mg/dL Urine Occult Blood (NEGATIVE) Urine Nitrite (NEGATIVE) Urine Bilirubin (NEGATIVE) Urine Urobilinogen (NORMAL) mg/dL Ur Leukocyte Esterase (NEGATIVE) Urine RBC (0-5) Urine WBC (0-5) Ur Epithelial Cells Amorphous Sediment Urine Bacteria Urine Mucus Asher Results Last 24 Hours: Microbiology 09/08/17 23:15 Stool Occult Blood (ASHER) - Final Stool / Feces Med Orders - Current: Current Medications Acetaminophen (Tylenol) 650 mg PO Q4H PRN PRN Reason: Pain Last Admin: 09/09/17 05:42 Dose: 650 mg Hydrocodone Bitart/Acetaminophen ([place] 325-5 Mg) 1 tab PO Q4H PRN PRN Reason: Pain (moderate 4-6) Albuterol (Proventil Neb Soln) 2.5 mg NEB Q4H PRN PRN Reason: Shortness Of Breath/wheezing Captopril (Capoten) 50 mg PO DAILY [facility] Last Admin: 09/09/17 10:45 Dose: 50 mg Furosemide (Lasix) 20 mg PO DAILY [facility] Last Admin: 09/09/17 10:47 Dose: 20 mg Hydrochlorothiazide (Hydrochlorothiazide) 12.5 mg PO DAILY [facility] Last Admin: 09/09/17 10:47 Dose: 12.5 mg Sodium Chloride (Normal Saline) 1,000 mls @ 125 mls/hr IV ASDIRECTED [facility] Last Admin: 09/09/17 13:00 Dose: 125 mls/hr Ciprofloxacin/Dextrose 400 mg/ (Premix) 200 mls @ 200 mls/hr IV Q12H [facility] Metronidazole 500 mg/ Premix 100 mls @ 100 mls/hr IV Q8H [facility] Last Admin: 09/09/17 10:47 Dose: 100 mls/hr Levothyroxine Sodium (Synthroid) 88 mcg PO ACBREAKFAST [facility] Last Admin: 09/09/17 10:44 Dose: 88 mcg Liraglutide (Victoza) 1.2 mg SUBCUT DAILY [facility] Lorazepam (Ativan) 1 mg IV Q6H PRN PRN Reason: Nausea/Vomiting Morphine Sulfate (Morphine) 2 mg IVPUSH Q2H PRN PRN Reason: Pain (severe 7-10) Non-Formulary Medication (Captopril/Hydrochlorothiazide [Captopril-Hctz 50-15 Mg ]) 1 tab PO DAILY [facility] Last Admin: 09/09/17 10:47 Dose: Not Given Ondansetron HCl (Zofran Odt) 4 mg PO Q6H PRN PRN Reason: Nausea able to take PO Pantoprazole Sodium (Protonix Iv) 40 mg IV Q12H [facility] Last Admin: 09/09/17 01:27 Dose: 40 mg Zolpidem Tartrate (Ambien) 5 mg PO BEDTIME PRN PRN Reason: Sleep Discontinued Medications Hydromorphone HCl (Dilaudid) 0.5 mg IVPUSH ONETIME ONE Stop: 09/08/17 23:44 Last Admin: 09/08/17 23:54 Dose: 0.5 mg Sodium Chloride (Normal Saline) 1,000 mls @ 999 mls/hr IV ASDIRECTED [facility] Last Admin: 09/08/17 23:28 Dose: 999 mls/hr Sodium Chloride (Normal Saline) 100 mls @ 3 mls/sec IV ASDIRECTED [facility] Last Admin: 09/09/17 00:35 Dose: 3 mls/sec Ciprofloxacin/Dextrose 400 mg/ (Premix) 200 mls @ 200 mls/hr IV Q12H [facility] Last Admin: 09/09/17 02:47 Dose: 200 mls/hr Metronidazole 500 mg/ Premix 100 mls @ 100 mls/hr IV Q8H [facility] Last Admin: 09/09/17 01:27 Dose: 100 mls/hr Iopamidol (Isovue-300 (61%)) 150 ml IV . DIRECTED [facility] Last Admin: 09/09/17 00:45 Dose: 150 ml Liraglutide (Victoza) 1.2 mg SUBCUT DAILY [facility] Last Admin: 09/09/17 10:48 Dose: 1.2 mg Ondansetron HCl (Zofran) 4 mg IVPUSH ONETIME ONE Stop: 09/08/17 23:44 Last Admin: 09/08/17 23:54 Dose: 4 mg - Exam Quality Assessment: DVT Prophylaxis General: Alert, Oriented, Cooperative, Mild Distress Lungs: Clear to Auscultation, Normal Respiratory Effort Cardiovascular: Regular Rate, Regular Rhythm, No Murmurs GI/Abdominal Exam: Soft, No Organomegaly, Tender. No: Distended, Guarding, Rigid, Rebound Extremities: Non-Tender, No Pedal Edema Skin: Warm, Dry, Intact - Problem List Review Problem List Initiated/Reviewed/Updated: Yes - My Orders Last 24 Hours: My Active Orders 09/10/17 05:00 BASIC METABOLIC PANEL,BMP [CHEM] Timed CBC WITH AUTO DIFF [HEME] Timed MAGNESIUM [CHEM] Timed - Plan Plan:: ASSESSMENT AND PLAN Ischemic colitis-most likely cause of current symptoms and findings, less likely infectious colitis -IV Fluids for rehydration NS at 125 mL per hour -IV Protonix 40 mg every 12 hours -Nothing by mouth -IV ciprofloxacin and metronidazole -Surgical consult Dr. Kay Diabetes Type 2 -hold Metformin -4 times a day glucometer -Low-dose sliding scale NovoLog Maintenance issues -Nutrition: NPO -Acharya catheter not indicated at this time -DVT: SCD -PPI: IV Protonix 40mg daily CODE STATUS: FULL CODE Admission status: Admit to [address] [place] [address] Admission justification. This patient will be admitted for inpatient services and is medically appropriate meeting medical necessity for inpatient admission as outlined in my documentation. I reasonably expect the patient will require inpatient services that span. Time over 2 midnights. I reasonably expect this patient to be discharged or transferred within 96 hours after admission to the [facility]. Disposition: home Primary care provider: Salvador Mccartney Hospitalist: Dr. Hall
[2017-09-09] MEDS: Ciprofloxacin in D5W 400 MG in Premix Bag 1 BAG IV SCH ×2 (13:34)
[2017-09-09] MEDS: Insulin Aspart 100 Units/ML 3 ML Pen SUBCUT SCH ×2 (18:21→21:40)
[2017-09-10] MEDS: Pantoprazole 40 MG Vial IV SCH (00:43)
[2017-09-10] MEDS: metroNIDAZOLE/Normal Saline 500 MG in Premix Bag 1 BAG IV SCH ×3 (00:44→16:31)
[2017-09-10] MEDS: Ciprofloxacin in D5W 400 MG in Premix Bag 1 BAG IV SCH ×4 (01:49→15:22)
[2017-09-10] MEDS: Insulin Aspart 100 Units/ML 3 ML Pen SUBCUT SCH ×4 (08:05→21:49)
[2017-09-10] MEDS: Levothyroxine 88 MCG Tab PO SCH (08:07)
[2017-09-10] MEDS ORDERED: Potassium Chloride 40 MEQ in Premix Bag 1 BAG IV ONE (08:18)
[2017-09-10] MEDS: CAPTOPRIL PO SCH (08:39)
[2017-09-10] MEDS: Hydrochlorothiazide 12.5 MG Cap PO SCH (08:39)
[2017-09-10] MEDS: Furosemide 20 MG Tab PO SCH (08:39)
[2017-09-10] MEDS: [UNRECOGNIZED DRUG - OTHER] PO SCH (08:39)
[2017-09-10] MEDS: HYDROCHLOROTHIAZIDE PO SCH (08:39)
[2017-09-10] MEDS: Liraglutide (rDNA Origin) 0.6 MG/0.1 ML 3 ML Pen SUBCUT SCH (08:41)
[2017-09-10] MEDS ORDERED: Potassium Chloride 20 MEQ Tab.ER PO ONE ×2 (08:45→17:00)
[2017-09-10] MEDS: Potassium Chloride 20 MEQ, Lidocaine 1% 2 ML in Sodium Chloride 0.9% 100 ML IV SCH ×2 (09:53→12:15)
[2017-09-10] MEDS: Sodium Chloride 0.9% 1,000 ML IV SCH (09:54)
--- NOTE | 2017-09-10 12:58 | PCM.PN ---
- General Info Date of Service: 09/10/17 Subjective Update: This patient has done well over the last 24 hours, no longer experiencing abdominal pain except with palpation. She has had no further bloody stools, vital signs have been stable and she has remained afebrile. Functional Status: Reports: Pain Controlled, Tolerating Diet, Ambulating, Urinating - Review of Systems General: Reports: Weakness. Denies: Fever, Chills Pulmonary: Reports: No Symptoms Cardiovascular: Reports: No Symptoms Gastrointestinal: Reports: Abdominal Pain. Denies: Difficulty Swallowing, Hematochezia, Melena, Nausea, Vomiting - Patient Data Vitals - Most Recent: Last Vital Signs Temp 97.1 F 09/10/17 10:24 Pulse 83 09/10/17 10:24 Resp 18 09/10/17 10:24 BP 117/66 09/10/17 10:24 Pulse Ox 94 L 09/10/17 10:24 Weight - Most Recent: 318 lb I&O - Last 24 Hours: Intake & Output 09/09/17 09/10/17 09/10/17 22:59 06:59 14:59 Intake Total 2624 324 Output Total 1000 600 Balance -1000 2023 324 Lab Results Last 24 Hours: Laboratory Results - last 24 hr 09/10/17 09/10/17 Range/Units 05:50 05:50 WBC 12.4 H (4.5-11.0) K/uL RBC 4.08 (3.30-5.50) M/uL Hgb 12.1 (12.0-15.0) g/dL Hct 37.0 (36.0-48.0) % MCV 91 (80-98) fL MCH 30 (27-31) pg MCHC 33 (32-36) % Plt Count 255 (150-400) K/uL Neut % (Auto) 73 H (36-66) % Lymph % (Auto) 13 L (24-44) % [place] % (Auto) 11 H (2-6) % Eos % (Auto) 2 (2-4) % Baso % (Auto) 0 (0-1) % Sodium 139 L (140-148) mmol/L Potassium 3.0 L (3.6-5.2) mmol/L Chloride 103 (100-108) mmol/L Carbon Dioxide 28 (21-32) mmol/L Anion Gap 11.0 (5.0-14.0) mmol/L BUN 12 (7-18) mg/dL Creatinine 0.9 (0.6-1.0) mg/dL Est Cr Clr Drug Dosing 37.00 mL/min Estimated GFR (MDRD) > 60 (>60) Glucose 109 H (74-106) mg/dL Calcium 7.5 L (8.5-10.1) mg/dL Magnesium 1.8 (1.8-2.4) mg/dL Med Orders - Current: Current Medications Acetaminophen (Tylenol) 650 mg PO Q4H PRN PRN Reason: Pain Last Admin: 09/09/17 05:42 Dose: 650 mg Hydrocodone Bitart/Acetaminophen ([place] 325-5 Mg) 1 tab PO Q4H PRN PRN Reason: Pain (moderate 4-6) Albuterol (Proventil Neb Soln) 2.5 mg NEB Q4H PRN PRN Reason: Shortness Of Breath/wheezing Captopril (Capoten) 50 mg PO DAILY [facility] Last Admin: 09/10/17 08:38 Dose: 50 mg Dextrose (Glutose 15) 15 gm PO ONETIME PRN PRN Reason: Hypoglycemia Dextrose/Water (Dextrose 50% In Water) 50 ml IV ONETIME PRN PRN Reason: Hypoglycemia Furosemide (Lasix) 20 mg PO DAILY [facility] Last Admin: 09/10/17 08:39 Dose: 20 mg Hydrochlorothiazide (Hydrochlorothiazide) 12.5 mg PO DAILY [facility] Last Admin: 09/10/17 08:39 Dose: 12.5 mg Ciprofloxacin/Dextrose 400 mg/ (Premix) 200 mls @ 200 mls/hr IV Q12H [facility] Last Admin: 09/10/17 01:49 Dose: 200 mls/hr Metronidazole 500 mg/ Premix 100 mls @ 100 mls/hr IV Q8H [facility] Last Admin: 09/10/17 08:39 Dose: 100 mls/hr Potassium Chloride 20 meq/Lidocaine HCl 2 ml/ Sodium Chloride 112 mls @ 56 mls/ hr IV Q2H [facility] Stop: 09/10/17 13:29 Last Admin: 09/10/17 12:15 Dose: 56 mls/hr Insulin Aspart (Novolog) 0 unit SUBCUT QIDACANDBED [facility]; Protocol Last Admin: 09/10/17 12:07 Dose: Not Given Levothyroxine Sodium (Synthroid) 88 mcg PO ACBREAKFAST [facility] Last Admin: 09/10/17 08:07 Dose: 88 mcg Liraglutide (Victoza) 1.2 mg SUBCUT DAILY [facility] Last Admin: 09/10/17 08:41 Dose: 1.2 units Lorazepam (Ativan) 1 mg IV Q6H PRN PRN Reason: Nausea/Vomiting Morphine Sulfate (Morphine) 2 mg IVPUSH Q2H PRN PRN Reason: Pain (severe 7-10) Non-Formulary Medication (Captopril/Hydrochlorothiazide [Captopril-Hctz 50-15 Mg ]) 1 tab PO DAILY [facility] Last Admin: 09/10/17 08:39 Dose: Not Given Ondansetron HCl (Zofran Odt) 4 mg PO Q6H PRN PRN Reason: Nausea able to take PO Pantoprazole Sodium (Protonix Iv) 40 mg IV Q12H [facility] Last Admin: 09/10/17 00:43 Dose: 40 mg Potassium Chloride (Klor-Con M20) 40 meq PO ONETIME ONE Stop: 09/10/17 17:01 Zolpidem Tartrate (Ambien) 5 mg PO BEDTIME PRN PRN Reason: Sleep Discontinued Medications Hydromorphone HCl (Dilaudid) 0.5 mg IVPUSH ONETIME ONE Stop: 09/08/17 23:44 Last Admin: 09/08/17 23:54 Dose: 0.5 mg Sodium Chloride (Normal Saline) 1,000 mls @ 999 mls/hr IV ASDIRECTED [facility] Last Admin: 09/08/17 23:28 Dose: 999 mls/hr Sodium Chloride (Normal Saline) 100 mls @ 3 mls/sec IV ASDIRECTED [facility] Last Admin: 09/09/17 00:35 Dose: 3 mls/sec Sodium Chloride (Normal Saline) 1,000 mls @ 125 mls/hr IV ASDIRECTED [facility] Last Admin: 09/10/17 09:54 Dose: 125 mls/hr Ciprofloxacin/Dextrose 400 mg/ (Premix) 200 mls @ 200 mls/hr IV Q12H [facility] Last Admin: 09/09/17 02:47 Dose: 200 mls/hr Metronidazole 500 mg/ Premix 100 mls @ 100 mls/hr IV Q8H [facility] Last Admin: 09/09/17 01:27 Dose: 100 mls/hr Iopamidol (Isovue-300 (61%)) 150 ml IV . DIRECTED [facility] Last Admin: 09/09/17 00:45 Dose: 150 ml Liraglutide (Victoza) 1.2 mg SUBCUT DAILY [facility] Last Admin: 09/09/17 10:48 Dose: 1.2 mg Ondansetron HCl (Zofran) 4 mg IVPUSH ONETIME ONE Stop: 09/08/17 23:44 Last Admin: 09/08/17 23:54 Dose: 4 mg Potassium Chloride (Klor-Con M20) 40 meq PO ONETIME ONE Stop: 09/10/17 08:46 Last Admin: 09/10/17 09:50 Dose: 40 meq - Exam Quality Assessment: DVT Prophylaxis General: Alert, Oriented, Cooperative, No Acute Distress Lungs: Clear to Auscultation, Normal Respiratory Effort Cardiovascular: Regular Rate, Regular Rhythm, No Murmurs GI/Abdominal Exam: Soft, No Organomegaly, Tender. No: Distended, Guarding, Rigid, Rebound Extremities: Non-Tender, Pedal Edema Skin: Warm, Dry, Intact - Problem List Review Problem List Initiated/Reviewed/Updated: Yes - My Orders Last 24 Hours: My Active Orders 09/09/17 13:13 Blood Glucose Check, Bedside [RC] QIDACANDBED Communication Order [RC] STAT Diabetes Education [RC] Click to Edit Notify Provider [RC] PRN Dextrose 50% in Water 50 ml IV ONETIME PRN Dextrose [Glutose 15] 15 gm PO ONETIME PRN 09/09/17 13:14 Discontinue Telemetry Monitoring [Cardiac Monitoring Discontinue] [RC] Click to Edit 09/09/17 17:00 Insulin Aspart [NovoLOG] See Protocol SUBCUT QIDACANDBED 09/10/17 09:30 Potassium Chloride 20 meq Lidocaine 1% [Xylocaine 1%] 2 ml Sodium Chloride 0.9 % [Normal Saline] 100 ml IV Q2H 09/10/17 12:55 Convert IV to Saline Lock [OM.PC] Routine 09/10/17 16:30 GLUCOSE POC LAB TO COLLECT [POC] QIDACANDBED 09/10/17 17:00 Potassium Chloride [Klor-Con M20] 40 meq PO ONETIME ONE 09/10/17 21:00 GLUCOSE POC LAB TO COLLECT [POC] QIDACANDBED 09/11/17 05:00 BASIC METABOLIC PANEL,BMP [CHEM] Timed CBC WITH AUTO DIFF [HEME] Timed 09/11/17 07:30 GLUCOSE POC LAB TO COLLECT [POC] QIDACANDBED 09/11/17 11:30 GLUCOSE POC LAB TO COLLECT [POC] QIDACANDBED 09/11/17 16:30 GLUCOSE POC LAB TO COLLECT [POC] QIDACANDBED 09/11/17 21:00 GLUCOSE POC LAB TO COLLECT [POC] QIDACANDBED 09/12/17 07:30 GLUCOSE POC LAB TO COLLECT [POC] QIDACANDBED 09/12/17 11:30 GLUCOSE POC LAB TO COLLECT [POC] QIDACANDBED 09/12/17 16:30 GLUCOSE POC LAB TO COLLECT [POC] QIDACANDBED 09/12/17 21:00 GLUCOSE POC LAB TO COLLECT [POC] QIDACANDBED 09/13/17 07:30 GLUCOSE POC LAB TO COLLECT [POC] QIDACANDBED 09/13/17 11:30 GLUCOSE POC LAB TO COLLECT [POC] QIDACANDBED 09/13/17 16:30 GLUCOSE POC LAB TO COLLECT [POC] QIDACANDBED 09/13/17 21:00 GLUCOSE POC LAB TO COLLECT [POC] QIDACANDBED 09/14/17 07:30 GLUCOSE POC LAB TO COLLECT [POC] QIDACANDBED 09/14/17 11:30 GLUCOSE POC LAB TO COLLECT [POC] QIDACANDBED - Plan Plan:: ASSESSMENT AND PLAN Ischemic colitis-most likely cause of current symptoms and findings, less likely infectious colitis -Saline lock IV -Full liquid diet -IV ciprofloxacin and metronidazole -Surgical consult Dr. Kay Diabetes Type 2 -hold Metformin, plan to resume tomorrow if tolerating diet -4 times a day glucometer -Low-dose sliding scale NovoLog Maintenance issues -Nutrition: Full liquid diet -Acharya catheter not indicated at this time -DVT: SCD -PPI: Not indicated CODE STATUS: FULL CODE Admission status: Admit to [address] [place] [address] Admission justification. This patient will be admitted for inpatient services and is medically appropriate meeting medical necessity for inpatient admission as outlined in my documentation. I reasonably expect the patient will require inpatient services that span. Time over 2 midnights. I reasonably expect this patient to be discharged or transferred within 96 hours after admission to the [facility]. Disposition: home Primary care provider: Salvador Mccartney Hospitalist: Dr. Hall
[2017-09-11] MEDS: metroNIDAZOLE/Normal Saline 500 MG in Premix Bag 1 BAG IV SCH ×2 (01:31→08:00)
[2017-09-11] MEDS: Ciprofloxacin in D5W 400 MG in Premix Bag 1 BAG IV SCH ×2 (03:25)
[2017-09-11] MEDS ORDERED: Pantoprazole 40 MG Tab.CR PO SCH (07:30)
[2017-09-11] MEDS: Levothyroxine 88 MCG Tab PO SCH (07:59)
[2017-09-11] MEDS: Liraglutide (rDNA Origin) 0.6 MG/0.1 ML 3 ML Pen SUBCUT SCH (10:10)
[2017-09-11] MEDS: Hydrochlorothiazide 12.5 MG Cap PO SCH (10:10)
[2017-09-11] MEDS: Furosemide 20 MG Tab PO SCH (10:10)
[2017-09-11] MEDS: Insulin Aspart 100 Units/ML 3 ML Pen SUBCUT SCH ×2 (10:10→12:31)
[2017-09-11 14:42] VITALS: BP 102/55
[2017-09-11] MEDS: HYDROCHLOROTHIAZIDE PO SCH (14:53)
[2017-09-11] MEDS: [UNRECOGNIZED DRUG - OTHER] PO SCH (14:53)
[2017-09-11] MEDS: CAPTOPRIL PO SCH (14:53)
--- NOTE | 2017-09-11 15:35 | PCM.DCSUM1 ---
Discharge Summary - Hospital Course Brief History: Ms. Bay is a 77-year-old woman who is admitted through the emergency department with cramping abdominal pain and bloody diarrhea secondary to ischemic colitis. - Discharge Data Discharge Date: 09/11/17 Discharge Disposition: Home, Self-Care 01 Condition: Fair - Discharge Diagnosis/Problem(s) (1) Acute ischemic colitis SNOMED Code(s): 42394416 ICD Code: K55.039 - ACUTE ISCHEMIA OF LARGE INTESTINE, EXTENT UNSPECIFIED Status: Acute Current Visit: Yes (2) Hematochezia SNOMED Code(s): 614706120 ICD Code: K92.1 - MELENA Status: Acute Current Visit: Yes (3) Diabetes mellitus type 2 in obese SNOMED Code(s): 32495184 ICD Code: E11.69 - TYPE 2 DIABETES MELLITUS WITH OTHER SPECIFIED COMPLICATION ; E66.9 - OBESITY, UNSPECIFIED Status: Chronic Priority: Medium Current Visit: Yes (4) Morbid obesity with BMI of 60.0-69.9, adult SNOMED Code(s): 197903535 ICD Code: E66.01 - MORBID (SEVERE) OBESITY DUE TO EXCESS CALORIES; Z68.44 - BODY MASS INDEX (BMI) 60.0-69.9, ADULT Status: Chronic Current Visit: No - Patient Summary/Data Consults: Consultations 09/09/17 01:00 Consult to Physician [CONS] Routine Consulting Provider: Raj Kay Call Completed to Consulting Physician: No: needs colonscopy/EGD Reason for Consult: GI Bleed Special Instructions: Consult to Spiritual Care [CONS] Routine OT Evaluation and Treatment [CONS] Routine Please Evaluate and Treat. OT Reason for Consult: Discharge Planning This query below is only for informational purposes and is not editable. Hospital Course: This patient is a 77-year-old woman who presented to the emergency room with lower abdominal pain and bloody diarrhea. White blood cell count was elevated at 14,000, hemoglobin within normal range, CT scan of the abdomen showed area of inflammation in the descending and proximal sigmoid colon, consistent with infectious etiology versus ischemic colitis. Symptoms began on the morning of admission with cramping abdominal pain that gradually became more intense throughout the day, in the evening prior to presenting to the emergency department she had a bloody bowel movement. She was admitted to the hospital and given IV fluids for hydration and kept nothing by mouth. Pain medication was given as needed. She had no further bloody stools and remained hemodynamically stable with a stable hemoglobin throughout her hospital course. She was started on IV antibiotic therapy with Flagyl and ciprofloxacin at the time of admission. Over the next few days her abdominal pain improved significantly but had not totally resolved by the time of discharge. She had no pain at rest, but did feel pain with palpation. She was seen and evaluated by Dr. Kay for surgical consult, he agreed with conservative management. Prior to discharge she had tolerated a soft low residue diet without difficulty. Activity will be as tolerated and she will remain on a soft low residue diet over the next few weeks. She should take a probiotic twice daily over the next month and will be prescribed oral antibiotic therapy with Flagyl and ciprofloxacin for an additional 5 days. Follow-up appointment will be scheduled with primary care provider within one week and a follow-up appointment should be scheduled with Dr. Kay in 2 weeks. - Patient Instructions Diet: GI Soft/Low Residue/Low Fiber Activity: As Tolerated Other/Special Instructions: Please schedule follow-up appointment with primary care provider within one week. Please have the patient for An [id number] probiotic intake twice daily for the next month. - Discharge Plan Prescriptions/Med Rec: Ciprofloxacin HCl [Cipro] 500 mg PO BID #10 tablet metroNIDAZOLE [Flagyl] 500 mg PO Q8H #15 tab Home Medications: Home Meds Captopril/Hydrochlorothiazide [Captopril-HCTZ 50-15 MG] 1 tab PO DAILY 03/25/13 [History] Levothyroxine [Synthroid] 88 mcg PO DAILY 03/25/13 [History] Naproxen Sodium [Aleve] 220 mg PO DAILY 03/25/13 [History] Simvastatin 20 mg PO BEDTIME 03/25/13 [History] metFORMIN [Glucophage] 500 mg PO DAILY 03/25/13 [History] Aspirin 81 mg PO DAILY 06/18/13 [History] Cholecalciferol 1,000 units PO DAILY 06/18/13 [History] Ciclopirox/Ure/Camph/Menth/Euc [Ciclopirox 8% Treatment Kit] 1 applic TOP BEDTIME 11/01/16 [History] Liraglutide [Saxenda] 1.2 mg SQ DAILY 11/01/16 [History] Furosemide [Lasix] 1 tab PO DAILY 09/08/17 [History] Ciprofloxacin HCl [Cipro] 500 mg PO BID #10 tablet 09/11/17 [Rx] metroNIDAZOLE [Flagyl] 500 mg PO Q8H #15 tab 09/11/17 [Rx] Patient Handouts: Soft-Food Eating Plan, Metronidazole tablets or capsules Referrals: Melina Mccartney PA-C [Primary Care Provider] - - Discharge Summary/Plan Comment DC Time >30 min.: No - Patient Data Vitals - Most Recent: Last Vital Signs Temp 97.2 F 09/11/17 14:40 Pulse 82 09/11/17 14:40 Resp 18 09/11/17 14:40 BP 102/55 L 09/11/17 14:40 Pulse Ox 94 L 09/11/17 14:40 Weight - Most Recent: 323 lb I&O - Last 24 hours: Intake & Output 09/11/17 09/11/17 09/11/17 06:59 14:59 22:59 Intake Total 785 Output Total 1400 400 Balance -615 -400 Lab Results - Last 24 hrs: Laboratory Results - last 24 hr 09/11/17 09/11/17 Range/Units 06:00 06:00 WBC 10.1 (4.5-11.0) K/uL RBC 4.22 (3.30-5.50) M/uL Hgb 12.5 (12.0-15.0) g/dL Hct 38.2 (36.0-48.0) % MCV 91 (80-98) fL MCH 30 (27-31) pg MCHC 33 (32-36) % Plt Count 275 (150-400) K/uL Neut % (Auto) 71 H (36-66) % Lymph % (Auto) 14 L (24-44) % Mckenzie % (Auto) 11 H (2-6) % Eos % (Auto) 4 (2-4) % Baso % (Auto) 0 (0-1) % Sodium 137 L (140-148) mmol/L Potassium 3.8 (3.6-5.2) mmol/L Chloride 102 (100-108) mmol/L Carbon Dioxide 28 (21-32) mmol/L Anion Gap 10.8 (5.0-14.0) mmol/L BUN 9 (7-18) mg/dL Creatinine 1.0 (0.6-1.0) mg/dL Est Cr Clr Drug Dosing 33.30 mL/min Estimated GFR (MDRD) 54 L (>60) Glucose 121 H (74-106) mg/dL Calcium 8.0 L (8.5-10.1) mg/dL Med Orders - Current: Current Medications Acetaminophen (Tylenol) 650 mg PO Q4H PRN PRN Reason: Pain Last Admin: 09/09/17 05:42 Dose: 650 mg Hydrocodone Bitart/Acetaminophen ([place] 325-5 Mg) 1 tab PO Q4H PRN PRN Reason: Pain (moderate 4-6) Albuterol (Proventil Neb Soln) 2.5 mg NEB Q4H PRN PRN Reason: Shortness Of Breath/wheezing Captopril (Capoten) 50 mg PO DAILY [facility] Last Admin: 09/11/17 10:10 Dose: 50 mg Dextrose (Glutose 15) 15 gm PO ONETIME PRN PRN Reason: Hypoglycemia Dextrose/Water (Dextrose 50% In Water) 50 ml IV ONETIME PRN PRN Reason: Hypoglycemia Furosemide (Lasix) 20 mg PO DAILY [facility] Last Admin: 09/11/17 10:10 Dose: 20 mg Hydrochlorothiazide (Hydrochlorothiazide) 12.5 mg PO DAILY [facility] Last Admin: 09/11/17 10:10 Dose: 12.5 mg Ciprofloxacin/Dextrose 400 mg/ (Premix) 200 mls @ 200 mls/hr IV Q12H [facility] Last Admin: 09/11/17 03:25 Dose: 200 mls/hr Metronidazole 500 mg/ Premix 100 mls @ 100 mls/hr IV Q8H [facility] Last Admin: 09/11/17 08:00 Dose: 100 mls/hr Insulin Aspart (Novolog) 0 unit SUBCUT QIDACANDBED [facility]; Protocol Last Admin: 09/11/17 12:31 Dose: Not Given Levothyroxine Sodium (Synthroid) 88 mcg PO ACBREAKFAST [facility] Last Admin: 09/11/17 07:59 Dose: 88 mcg Liraglutide (Victoza) 1.2 mg SUBCUT DAILY [facility] Last Admin: 09/11/17 10:10 Dose: 1.2 mg Lorazepam (Ativan) 1 mg IV Q6H PRN PRN Reason: Nausea/Vomiting Morphine Sulfate (Morphine) 2 mg IVPUSH Q2H PRN PRN Reason: Pain (severe 7-10) Ondansetron HCl (Zofran Odt) 4 mg PO Q6H PRN PRN Reason: Nausea able to take PO Pantoprazole Sodium (Protonix) 40 mg PO ACBREAKFAST [facility] Last Admin: 09/11/17 07:59 Dose: 40 mg Zolpidem Tartrate (Ambien) 5 mg PO BEDTIME PRN PRN Reason: Sleep Discontinued Medications Hydromorphone HCl (Dilaudid) 0.5 mg IVPUSH ONETIME ONE Stop: 09/08/17 23:44 Last Admin: 09/08/17 23:54 Dose: 0.5 mg Sodium Chloride (Normal Saline) 1,000 mls @ 999 mls/hr IV ASDIRECTED [facility] Last Admin: 09/08/17 23:28 Dose: 999 mls/hr Sodium Chloride (Normal Saline) 100 mls @ 3 mls/sec IV ASDIRECTED [facility] Last Admin: 09/09/17 00:35 Dose: 3 mls/sec Sodium Chloride (Normal Saline) 1,000 mls @ 125 mls/hr IV ASDIRECTED [facility] Last Admin: 09/10/17 09:54 Dose: 125 mls/hr Ciprofloxacin/Dextrose 400 mg/ (Premix) 200 mls @ 200 mls/hr IV Q12H [facility] Last Admin: 09/09/17 02:47 Dose: 200 mls/hr Metronidazole 500 mg/ Premix 100 mls @ 100 mls/hr IV Q8H [facility] Last Admin: 09/09/17 01:27 Dose: 100 mls/hr Potassium Chloride 20 meq/Lidocaine HCl 2 ml/ Sodium Chloride 112 mls @ 56 mls/ hr IV Q2H [facility] Stop: 09/10/17 13:29 Last Admin: 09/10/17 12:15 Dose: 56 mls/hr Iopamidol (Isovue-300 (61%)) 150 ml IV . DIRECTED [facility] Last Admin: 09/09/17 00:45 Dose: 150 ml Liraglutide (Victoza) 1.2 mg SUBCUT DAILY [facility] Last Admin: 09/09/17 10:48 Dose: 1.2 mg Non-Formulary Medication (Captopril/Hydrochlorothiazide [Captopril-Hctz 50-15 Mg ]) 1 tab PO DAILY [facility] Last Admin: 09/11/17 14:53 Dose: Not Given Ondansetron HCl (Zofran) 4 mg IVPUSH ONETIME ONE Stop: 09/08/17 23:44 Last Admin: 09/08/17 23:54 Dose: 4 mg Pantoprazole Sodium (Protonix Iv) 40 mg IV Q12H [facility] Last Admin: 09/10/17 00:43 Dose: 40 mg Potassium Chloride (Klor-Con M20) 40 meq PO ONETIME ONE Stop: 09/10/17 08:46 Last Admin: 09/10/17 09:50 Dose: 40 meq Potassium Chloride (Klor-Con M20) 40 meq PO ONETIME ONE Stop: 09/10/17 17:01 Last Admin: 09/10/17 16:32 Dose: 40 meq - Exam General: Reports: Alert, Oriented, Cooperative, No Acute Distress Lungs: Reports: Clear to Auscultation, Normal Respiratory Effort Cardiovascular: Reports: Regular Rate, Regular Rhythm GI/Abdominal Exam: Soft, No Organomegaly, Tender. No: Distended, Guarding, Rigid, Rebound
== END 2017-09-11 16:56 | disposition home or self-care (01) | DRG 394 ==
LOC: JP.ED 21:50 → JP.MS 09-09 00:31
PROVIDERS: ADMIT Hospitalist; ATTEND Hospitalist
DX: K55.9 Vascular disorder of intestine, unspecified (principal); K92.2 Gastrointestinal hemorrhage, unspecified; K55.039 Acute (reversible) ischemia of large intestine, extent unspecified; K92.1 Melena; E66.9 Obesity, unspecified; Z68.44 Body mass index [BMI] 60.0-69.9, adult; R19.5 Other fecal abnormalities; R10.30 Lower abdominal pain, unspecified; I10 Essential (primary) hypertension; E11.69 Type 2 diabetes mellitus with other specified complication; E03.9 Hypothyroidism, unspecified; Z79.84 Long term (current) use of oral hypoglycemic drugs; E78.00 Pure hypercholesterolemia, unspecified; M19.90 Unspecified osteoarthritis, unspecified site; Z85.820 Personal history of malignant melanoma of skin; Z79.82 Long term (current) use of aspirin; Z88.2 Allergy status to sulfonamides; Z88.8 Allergy status to other drugs, medicaments and biological substances; E66.01 Morbid (severe) obesity due to excess calories
CPT/HCPCS: 36415; 80053; 82272; 85025; 86140; 96361; 96374; 96375; 99285; J1170; J2405; J7040; 74177; 80048; 81001; 82962; 83735; 94762; A9270-GY; C9113; J0744; J3480; J7030

== ENCOUNTER 2017-11-13 20:40 | Emergency (ER) | payer MEDICARE, OTHER ==
--- NOTE | 2017-11-14 00:03 | EDM.PDOC ---
ED HPI GENERAL MEDICAL PROBLEM - General Chief Complaint: Genitourinary Problem Stated Complaint: BLOOD & CLOTS IN URINE Time Seen by Provider: 11/13/17 20:45 Source of Information: Reports: Patient History Limitations: Reports: No Limitations - History of Present Illness INITIAL COMMENTS - FREE TEXT/NARRATIVE: This lady complains of hematuria since 5 pm today. Some NORBERT today. No fever. no aching. No hx uti's no anticoag. Groin Pain Score (Numeric/FACES): 8 - Related Data Allergies Allergy/AdvReac Type Severity Reaction Status Date / Time celecoxib [From Celebrex] Allergy Severe Airway Verified 09/08/17 22:52 Tightness Sulfa (Sulfonamide Allergy Severe Airway Verified 09/08/17 22:52 Antibiotics) Tightness Home Meds: Home Meds Captopril/Hydrochlorothiazide [Captopril-HCTZ 50-15 MG] 1 tab PO DAILY 03/25/13 [History] Levothyroxine [Synthroid] 88 mcg PO DAILY 03/25/13 [History] Simvastatin 20 mg PO BEDTIME 03/25/13 [History] metFORMIN [Glucophage] 500 mg PO DAILY 03/25/13 [History] Aspirin 81 mg PO DAILY 06/18/13 [History] Ciclopirox/Ure/Camph/Menth/Euc [Ciclopirox 8% Treatment Kit] 1 applic TOP BEDTIME 11/01/16 [History] Liraglutide [Saxenda] 1.2 mg SQ DAILY 11/01/16 [History] Furosemide [Lasix] 1 tab PO DAILY 09/08/17 [History] Past Medical History HEENT History: Reports: Cataract, Impaired Vision Cardiovascular History: Reports: High Cholesterol, Hypertension Gastrointestinal History: Reports: Colon Polyp, Other (See Below) Other Gastrointestinal History: 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 Genitourinary History: Reports: None, Other (See Below) Other Genitourinary History: 11/13 bloody urine 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: Musculoskeletal History: Reports: Arthritis Neurological History: Reports: Other (See Below) Other Neuro History: Belles Palsy Endocrine/Metabolic History: Reports: Diabetes, Type II, Hypothyroidism, Obesity /BMI 30+ Oncologic (Cancer) History: Reports: Malignant Melanoma Dermatologic History: Reports: Melanoma - Infectious Disease History Infectious Disease History: Reports: Measles - Past Surgical History HEENT Surgical History: Reports: Cataract Surgery Cardiovascular Surgical History: Reports: None GI Surgical History: Reports: Colonoscopy Female Surgical History: Reports: D&C Endocrine Surgical History: Reports: None Neurological Surgical History: Reports: None Musculoskeletal Surgical History: Reports: Other (See Below) Other Musculoskeletal Surgeries/Procedures:: surgery right thumb 9 years ago Oncologic Surgical History: Reports: Other (See Below) Other Oncologic Surgeries/Procedures: lymph nodes removed under right arm with melanoma Dermatological Surgical History: Reports: Skin Biopsy Social & Family History - Family History Family Medical History: Noncontributory - Tobacco Use Smoking Status *Q: Never Smoker Second Hand Smoke Exposure: No - Caffeine Use Caffeine Use: Reports: Coffee - Recreational Drug Use Recreational Drug Use: No - Living Situation & Occupation Living situation: Reports: (Lives with her who is a chemical unit operator in [place], [place]. Has 6 adult children, her daughter Abi is a RN nurse on second floor at [employer]) ED ROS GENERAL - Review of Systems Review Of Systems: ROS reveals no pertinent complaints other than HPI. ED EXAM, RENAL/ - Physical Exam Exam: See Below Exam Limited By: No Limitations General Appearance: Alert, No Apparent Distress, Obese Respiratory/Chest: Lungs Clear Cardiovascular: Regular Rate, Rhythm GI/Abdominal: Soft, Non-Tender Extremities: Normal Inspection Neurological: Alert, Oriented Psychiatric: Normal Affect Skin Exam: Warm, Dry Course - Vital Signs Last Recorded V/S: Last Vital Signs Temp 36.8 C 11/13/17 23:46 Pulse 87 11/13/17 23:46 Resp 14 11/13/17 23:46 BP 143/72 H 11/13/17 23:46 Pulse Ox 96 11/13/17 23:46 - Orders/Labs/Meds Orders: Active Orders 24 hr Category Date Time Status CULTURE URINE [RM] Stat Lab 11/13/17 21:37 Received UA W/MICROSCOPIC [URIN] Urgent Lab 11/13/17 21:37 Ordered Labs: Laboratory Tests 11/13/17 11/13/17 11/13/17 Range/Units 21:36 21:36 21:36 WBC 10.6 (4.5-11.0) K/uL RBC 4.59 (3.30-5.50) M/uL Hgb 13.7 (12.0-15.0) g/dL Hct 40.8 (36.0-48.0) % MCV 89 (80-98) fL MCH 30 (27-31) pg MCHC 34 (32-36) % Plt Count 308 (150-400) K/uL Neut % (Auto) 68 H (36-66) % Lymph % (Auto) 18 L (24-44) % Charl[place] % (Auto) 10 H (2-6) % Eos % (Auto) 3 (2-4) % Baso % (Auto) 0 (0-1) % PT 10.3 (9.5-12.0) sec INR 0.93 (0.80-1.20) APTT 25.9 L (27.0-36.0) sec Sodium 138 L (140-148) mmol/L Potassium 3.5 L (3.6-5.2) mmol/L Chloride 100 (100-108) mmol/L Carbon Dioxide 30 (21-32) mmol/L Anion Gap 11.5 (5.0-14.0) mmol/L BUN 12 (7-18) mg/dL Creatinine 1.1 H (0.6-1.0) mg/dL Est Cr Clr Drug Dosing TNP Estimated GFR (MDRD) 48 L (>60) Glucose 153 H (74-106) mg/dL Calcium 8.4 L (8.5-10.1) mg/dL Urine Color Urine Appearance Urine pH (4.5-8.0) Ur Specific [place] (1.008-1.030) Urine Protein (NEGATIVE) mg/dL Urine Glucose (UA) (NEGATIVE) mg/dL Urine Ketones (NEGATIVE) mg/dL Urine Occult Blood (NEGATIVE) Urine Nitrite (NEGATIVE) Urine Bilirubin (NEGATIVE) Urine Urobilinogen (NORMAL) mg/dL Ur Leukocyte Esterase (NEGATIVE) Urine RBC (0-5) Urine WBC (0-5) Ur Epithelial Cells Urine Bacteria Urine Mucus 11/13/17 Range/Units 21:37 WBC (4.5-11.0) K/uL RBC (3.30-5.50) M/uL Hgb (12.0-15.0) g/dL Hct (36.0-48.0) % MCV (80-98) fL MCH (27-31) pg MCHC (32-36) % Plt Count (150-400) K/uL Neut % (Auto) (36-66) % Lymph % (Auto) (24-44) % Charl[place] % (Auto) (2-6) % Eos % (Auto) (2-4) % Baso % (Auto) (0-1) % PT (9.5-12.0) sec INR (0.80-1.20) APTT (27.0-36.0) sec Sodium (140-148) mmol/L Potassium (3.6-5.2) mmol/L Chloride (100-108) mmol/L Carbon Dioxide (21-32) mmol/L Anion Gap (5.0-14.0) mmol/L BUN (7-18) mg/dL Creatinine (0.6-1.0) mg/dL Est Cr Clr Drug Dosing Estimated GFR (MDRD) (>60) Glucose (74-106) mg/dL Calcium (8.5-10.1) mg/dL Urine Color Red Urine Appearance Cloudy Urine pH 7.0 (4.5-8.0) Ur Specific [place] 1.010 (1.008-1.030) Urine Protein 100 H (NEGATIVE) mg/dL Urine Glucose (UA) Normal (NEGATIVE) mg/dL Urine Ketones Negative (NEGATIVE) mg/dL Urine Occult Blood Large (NEGATIVE) Urine Nitrite Negative (NEGATIVE) Urine Bilirubin Negative (NEGATIVE) Urine Urobilinogen Normal (NORMAL) mg/dL Ur Leukocyte Esterase Small (NEGATIVE) Urine RBC Packed H (0-5) Urine WBC 5-10 H (0-5) Ur Epithelial Cells Few Urine Bacteria Few Urine Mucus Not seen - Re-Assessments/Exams Free Text/Narrative Re-Assessment/Exam: 11/14/17 00:00 labs noted. urine culture done. Departure - Departure Time of Disposition: 00:00 Disposition: Home, Self-Care 01 Condition: Fair Clinical Impression: Hemorrhagic cystitis - Discharge Information Referrals: Melina Mccartney PA-C [Primary Care Provider] - Additional Instructions: Take the antibiotic cipro 500 mg twice daily for 5 days. Drink lots of water. see your doctor in about 1 week to make sure all the blood is cleared up. Ok to have the colonoscopy on if the infection and bleeding are cleared up. - My Orders Last 24 Hours: My Active Orders 11/13/17 21:37 CULTURE URINE [RM] Stat UA W/MICROSCOPIC [URIN] Urgent - Assessment/Plan Last 24 Hours: My Active Orders 11/13/17 21:37 CULTURE URINE [RM] Stat UA W/MICROSCOPIC [URIN] Urgent
[2017-11-14 00:16] VITALS: BP 144/81
== END 2017-11-14 00:17 | disposition home or self-care (01) ==
LOC: JP.ED 20:40
DX: N30.91 Cystitis, unspecified with hematuria (principal); I10 Essential (primary) hypertension; E78.00 Pure hypercholesterolemia, unspecified; Z79.899 Other long term (current) drug therapy; Z88.1 Allergy status to other antibiotic agents; Z88.2 Allergy status to sulfonamides
CPT/HCPCS: 36415; 80048; 81001; 85025; 85610; 85730; 87086; 87088; 87186; 99284

== ENCOUNTER 2021-04-05 14:53 | Emergency (ER) | payer MEDICARE, OTHER ==
[2021-04-05 15:03] VITALS: BP 136/58; PULSE 80
--- NOTE | 2021-04-05 15:58 | EDM.PDOC ---
ED HPI GENERAL MEDICAL PROBLEM - General Chief Complaint: General Stated Complaint: MEDICAL VIA [facility] Time Seen by Provider: 04/05/21 15:20 Source of Information: Reports: Patient, EMS, Family History Limitations: Reports: No Limitations - History of Present Illness INITIAL COMMENTS - FREE TEXT/NARRATIVE: 80-year-old female was at a shinto event when she started having some stomach cramping and discomfort. She went to the bathroom twice thinking she needed a bowel movement but nothing happened. She does have a history of some irritable bowel issues. After she arrived back at the table, she felt uncomfortable, lightheaded, then became extremely pale and diaphoretic and fainted onto the table. They helped her to the floor and called the ambulance. When EMS arrived she was awake and talking but still feeling uncomfortable, no chest pain or shortness of breath. An EKG was done which was nonspecific, normal sinus rhythm without ST elevation. She was bolused with fluids in route and given some Zofran, now feels near baseline. Still having some mild abdominal discomfort. Onset: Sudden (Symptoms started fairly suddenly within the last 2 hours) Location: Reports: Abdomen (Abdominal cramping leading to generalized syncope, diaphoresis and pallor) Improves with: Reports: Other (Fluids and time seems to have helped) Associated Symptoms: Reports: Diaphoresis, Malaise, Weakness. Denies: Chest Pain, Fever/Chills, Nausea/Vomiting, Shortness of Breath - Related Data Allergies Allergy/AdvReac Type Severity Reaction Status Date / Time celecoxib [From Celebrex] Allergy Severe Airway Verified 03/25/18 05:50 Tightness Sulfa (Sulfonamide Allergy Severe Airway Verified 03/25/18 05:50 Antibiotics) Tightness nitrofurantoin Allergy Rash Verified 08/21/18 14:59 Home Meds: Home Meds Levothyroxine [Synthroid] 88 mcg PO DAILY 03/25/13 [History] Simvastatin 20 mg PO BEDTIME 03/25/13 [History] Aspirin 81 mg PO DAILY #0 06/18/13 [History] Ciclopirox/Urea/Camph/Men/Euc [Ciclopirox 8% Treatment Kit] 1 applic TOP BID PRN 11/01/16 [History] Liraglutide [Saxenda] 1.2 mg SQ DAILY 11/01/16 [History] Furosemide [Lasix] 20 mg PO DAILY 09/08/17 [History] Diclofenac Sodium [Voltaren] 100 gm TP QID 08/21/18 [History] hydrOXYzine HCL [Atarax] 10 mg PO TID PRN 08/21/18 [History] Losartan/Hydrochlorothiazide [Losartan-HCTZ 50-12.5 MG] 1 each PO DAILY 04/05/21 [History] Past Medical History HEENT History: Reports: Cataract, Impaired Vision Cardiovascular History: Reports: High Cholesterol, Hypertension Respiratory History: Reports: SOB Gastrointestinal History: Reports: Chronic Diarrhea, Colon Polyp, Hemorrhoids, Other (See Below) Other Gastrointestinal History: 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 Genitourinary History: Reports: UTI, Recurrent, Other (See Below) Other Genitourinary History: 11/13 bloody urine [employer] History: Reports: Dysfunctional Uterine Bleeding, Musculoskeletal History: Reports: Osteoarthritis Neurological History: Reports: Other (See Below) Other Neuro History: Belles Palsy Endocrine/Metabolic History: Reports: Diabetes, Type II, Hypothyroidism, Obesity/BMI 30+ Oncologic (Cancer) History: Reports: Malignant Melanoma Dermatologic History: Reports: Melanoma - Infectious Disease History Infectious Disease History: Reports: Measles - Past Surgical History Head Surgeries/Procedures: Reports: None HEENT Surgical History: Reports: Cataract Surgery Cardiovascular Surgical History: Reports: None Respiratory Surgical History: Reports: None GI Surgical History: Reports: Colonoscopy, EGD Female Surgical History: Reports: Breast Biopsy, D&C, Tubal Ligation Endocrine Surgical History: Reports: None Neurological Surgical History: Reports: None Musculoskeletal Surgical History: Reports: Other (See Below) Other Musculoskeletal Surgeries/Procedures:: surgery right thumb 9 years ago Oncologic Surgical History: Reports: Other (See Below) Other Oncologic Surgeries/Procedures: lymph nodes removed under right arm with melanoma Dermatological Surgical History: Reports: Skin Biopsy Social & Family History - Family History Family Medical History: No Pertinent Family History - Tobacco Use Tobacco Use Status *Q: Never Tobacco User - Caffeine Use Caffeine Use: Reports: Coffee, Soda - Recreational Drug Use Recreational Drug Use: No - Living Situation & Occupation Living situation: Reports: (Lives with her who is a instructional coordinator in [place], [place]. Has 6 adult children, her daughter Abi is a RN nurse on second floor at [employer]) ED ROS GENERAL - Review of Systems Review Of Systems: See Below Constitutional: Reports: Malaise. Denies: Fever, Chills HEENT: Reports: No Symptoms Respiratory: Denies: Shortness of Breath Cardiovascular: Reports: Other (She does have a history of congestive heart failure chronic peripheral edema). Denies: Chest Pain GI/Abdominal: Reports: Abdominal Pain, Diarrhea. Denies: Nausea, Vomiting : Reports: Other (Earlier today she was wondering if she had a urinary tract infection with some mild dysuria) Musculoskeletal: Reports: No Symptoms Skin: Reports: No Symptoms Neurological: Reports: Syncope, Weakness. Denies: Confusion, Headache ED EXAM, GENERAL - Physical Exam Exam: See Below Exam Limited By: No Limitations General Appearance: Alert, No Apparent Distress Eye Exam: Bilateral Eye: Normal Inspection Head: Atraumatic, Normocephalic Neck: Supple, Non-Tender Respiratory/Chest: Lungs Clear, Chest Non-Tender Cardiovascular: Regular Rate, Rhythm. No: Extra Beats GI/Abdominal: Normal Bowel Sounds, Soft, Tender (She is still reacting to tenderness with palpation of her abdomen especially the right side and epigastric area. Mild guarding but no apparent rebound tenderness) Extremities: Pedal Edema (Significant 2+ pitting edema both lower extremities) Neurological: Alert, Oriented, No Motor/Sensory Deficits Psychiatric: Normal Affect, Normal Mood Skin Exam: Warm, Dry, Other (Some venous stasis changes of the extreme lower extremities and dry skin) Course - Vital Signs Last Recorded V/S: Last Vital Signs Temp 96 F L 04/05/21 15:02 Pulse 80 04/05/21 15:02 Resp 16 04/05/21 15:02 BP 136/58 L 04/05/21 15:02 Pulse Ox 99 04/05/21 15:02 - Orders/Labs/Meds Labs: Laboratory Tests 04/05/21 04/05/21 04/05/21 Range/Units 15:36 15:45 15:45 WBC 10.9 (4.5-11.0) K/uL RBC 4.63 (3.30-5.50) M/uL Hgb 13.5 (12.0-15.0) g/dL Hct 40.6 (36.0-48.0) % MCV 88 (80-98) fL MCH 29 (27-31) pg MCHC 33 (32-36) % Plt Count 341 (150-400) K/uL Neut % (Auto) 79.5 H (36-66) % Lymph % (Auto) 10.5 L (24-44) % Fin[place] % (Auto) 8.4 H (2-6) % Eos % (Auto) 1.3 L (2-4) % Baso % (Auto) 0.3 (0-1) % Sodium 136 L (140-148) mmol/L Potassium 3.5 L (3.6-5.2) mmol/L Chloride 98 L (100-108) mmol/L Carbon Dioxide 29 (21-32) mmol/L Anion Gap 12.5 (5.0-14.0) mmol/L BUN 24 H (7-18) mg/dL Creatinine 1.3 H (0.6-1.0) mg/dL Est Cr Clr Drug Dosing 24.38 mL/min Estimated GFR (MDRD) 39 L (>60) Glucose 155 H (74-106) mg/dL Calcium 8.6 (8.5-10.1) mg/dL Total Bilirubin 0.6 D (0.2-1.0) mg/dL AST 20 (15-37) U/L ALT 23 (12-78) U/L Alkaline Phosphatase 91 (46-116) U/L Troponin I High Sens (<=60.3) pg/mL Total Protein 7.3 (6.4-8.2) g/dL Albumin 3.4 (3.4-5.0) g/dL Globulin 3.9 H (2.3-3.5) g/dL Albumin/Globulin Ratio 0.9 L (1.2-2.2) Lipase 213 (73-393) U/L Urine Color (YELLOW) Urine Appearance (CLEAR) Urine pH (5.0-8.0) Ur Specific [place] (1.008-1.030) Urine Protein (NEGATIVE) mg/dL Urine Glucose (UA) (NEGATIVE) mg/dL Urine Ketones (NEGATIVE) mg/dL Urine Occult Blood (NEGATIVE) Urine Nitrite (NEGATIVE) Urine Bilirubin (NEGATIVE) Urine Urobilinogen (0.2-1.0) EU/dL Ur Leukocyte Esterase (NEGATIVE) Urine RBC (0-5) Urine WBC (0-5) Ur Epithelial Cells Amorphous Sediment Urine Bacteria Urine Mucus SARS CoV-2 RNA Rapid ALEM Negative 04/05/21 04/05/21 Range/Units 15:45 16:00 WBC (4.5-11.0) K/uL RBC (3.30-5.50) M/uL Hgb (12.0-15.0) g/dL Hct (36.0-48.0) % MCV (80-98) fL MCH (27-31) pg MCHC (32-36) % Plt Count (150-400) K/uL Neut % (Auto) (36-66) % Lymph % (Auto) (24-44) % [place] % (Auto) (2-6) % Eos % (Auto) (2-4) % Baso % (Auto) (0-1) % Sodium (140-148) mmol/L Potassium (3.6-5.2) mmol/L Chloride (100-108) mmol/L Carbon Dioxide (21-32) mmol/L Anion Gap (5.0-14.0) mmol/L BUN (7-18) mg/dL Creatinine (0.6-1.0) mg/dL Est Cr Clr Drug Dosing mL/min Estimated GFR (MDRD) (>60) Glucose (74-106) mg/dL Calcium (8.5-10.1) mg/dL Total Bilirubin (0.2-1.0) mg/dL AST (15-37) U/L ALT (12-78) U/L Alkaline Phosphatase (46-116) U/L Troponin I High Sens 4.4 (<=60.3) pg/mL Total Protein (6.4-8.2) g/dL Albumin (3.4-5.0) g/dL Globulin (2.3-3.5) g/dL Albumin/Globulin Ratio (1.2-2.2) Lipase (73-393) U/L Urine Color Yellow (YELLOW) Urine Appearance Cloudy A (CLEAR) Urine pH 6.0 (5.0-8.0) Ur Specific [place] >= 1.030 (1.008-1.030) Urine Protein 30 H (NEGATIVE) mg/dL Urine Glucose (UA) Negative (NEGATIVE) mg/dL Urine Ketones Negative (NEGATIVE) mg/dL Urine Occult Blood Large H (NEGATIVE) Urine Nitrite Negative (NEGATIVE) Urine Bilirubin Small H (NEGATIVE) Urine Urobilinogen 0.2 (0.2-1.0) EU/dL Ur Leukocyte Esterase Negative (NEGATIVE) Urine RBC Semi-packed H (0-5) Urine WBC 0-5 (0-5) Ur Epithelial Cells Moderate Amorphous Sediment Not seen Urine Bacteria Rare Urine Mucus Not seen SARS CoV-2 RNA Rapid ALEM - Re-Assessments/Exams Free Text/Narrative Re-Assessment/Exam: 04/05/21 15:58 EKG was not repeated, we discussed this is likely being a vasovagal episode and a CBC, CMP, lipase and Covid were drawn as well as a troponin. 04/05/21 16:27 Patient remained asymptomatic while in the emergency room, UA was a little traumatic and had RBCs but no evidence of infection. CBC is normal, CMP reassuring. Covid was negative. Patient was discharged with a diagnosis of vasovagal syncope. Departure - Departure Time of Disposition: 16:48 Disposition: Home, Self-Care 01 Clinical Impression: Vasovagal syncope, Abdominal cramping - Discharge Information Instructions: Syncope, [id number] Referrals: PCP,None [Primary Care Provider] - Forms: ED Department Discharge Care Plan Goals: Continue current medications, stay hydrated, and increase activity as tolerated. Return anytime if symptoms are recurring or you develop other concerns. Sepsis Event Note (ED) - Evaluation Sepsis Screening Result: No Definite Risk - Focused Exam Vital Signs: Vital Signs Temp Pulse Resp BP Pulse Ox 04/05/21 15:02 96 F L 80 16 136/58 L 99
== END 2021-04-05 16:50 | disposition home or self-care (01) ==
LOC: JP.ED 14:53
DX: R10.13 Epigastric pain (principal); R55 Syncope and collapse; E78.00 Pure hypercholesterolemia, unspecified; I10 Essential (primary) hypertension; M19.90 Unspecified osteoarthritis, unspecified site; E11.9 Type 2 diabetes mellitus without complications; E03.9 Hypothyroidism, unspecified; E66.9 Obesity, unspecified; Z68.43 Body mass index [BMI] 50.0-59.9, adult; Z88.1 Allergy status to other antibiotic agents; Z88.2 Allergy status to sulfonamides; Z79.82 Long term (current) use of aspirin; Z79.899 Other long term (current) drug therapy; Z20.822 Contact with and (suspected) exposure to COVID-19
CPT/HCPCS: 36415; 80053; 81001; 83690; 84484; 85025; 99284; U0002

== ENCOUNTER 2022-02-07 04:58 | Emergency (ER) | payer MEDICARE, OTHER ==
[2022-02-07] MEDS ORDERED: Sodium Chloride 0.9% 10 ML Syringe FLUSH PRN (05:19)
[2022-02-07] MEDS ORDERED: Sodium Chloride 0.9% 500 ML IV ONE (05:47)
[2022-02-07] MEDS ORDERED: Ondansetron 4 MG/2 ML SDV IVPUSH ONE (05:48)
[2022-02-07 06:17] LABS: ESTIMATED GFR 45 mL/min (>60); TROPONIN I HIGH SENSITIVITY 4.5 pg/mL (<=60.3)
[2022-02-07 06:35] LABS: CORONAVIRUS COVID-19 NAA NEGATIVE (NEGATIVE)
[2022-02-07 07:07] VITALS: BP 119/61; PULSE 84
== END 2022-02-07 07:37 | disposition home or self-care (01) ==
LOC: JP.ED 04:58
DX: R55 Syncope and collapse (principal); A08.4 Viral intestinal infection, unspecified; E86.0 Dehydration; E78.00 Pure hypercholesterolemia, unspecified; I10 Essential (primary) hypertension; E11.9 Type 2 diabetes mellitus without complications; E66.9 Obesity, unspecified; Z68.43 Body mass index [BMI] 50.0-59.9, adult; Z88.1 Allergy status to other antibiotic agents; Z88.2 Allergy status to sulfonamides; Z88.8 Allergy status to other drugs, medicaments and biological substances; Z79.899 Other long term (current) drug therapy; Z20.822 Contact with and (suspected) exposure to COVID-19
CPT/HCPCS: 0241U; 36415; 80053; 83880; 84443; 84484; 85025; 93005; 96361; 96374; 99284; J2405; J3490; J7040

== ENCOUNTER 2023-06-14 11:48 | Emergency (ER) | payer MEDICARE, OTHER ==
[2023-06-14 12:50] LABS: BASOPHILS ABSOLUTE AUTO 0.03 K/uL (0.00-0.10); BASOPHILS PERCENT AUTO 0.3 % (0.1-1.3); EOSINOPHILS ABSOLUTE AUTO 0.12 K/uL (0.00-0.40); EOSINOPHILS PERCENT AUTO 1.4 % (0.0-5.4); HEMATOCRIT 38.2 % (34.3-46.0); HEMOGLOBIN 12.9 g/dL (11.2-15.5); IMMATURE GRAN ABSOLUTE AUTO 0.03 K/uL (0.00-0.23); IMMATURE GRAN PERCENT AUTO 0.3 % (0.0-0.7); LYMPHOCYTES ABSOLUTE AUTO 1.24 K/uL (0.8-3.3); MEAN CORPUSCULAR HEMOGLOBIN 29.5 pg (31.6-35.5); MEAN CORPUSCULAR HGB CONC 33.8 g/dL (31.6-35.5); MEAN CORPUSCULAR VOLUME 87.2 fL (81.4-99.0); MONOCYTES ABSOLUTE AUTO 0.69 K/uL (0.20-0.90); MONOCYTES PERCENT AUTO 7.8 % (3.3-12.6); NEUTROPHILS ABSOLUTE AUTO 6.72 K/uL (1.0-7.6); NEUTROPHILS PERCENT AUTO 76.2 % (40.0-78.1); PLATELET COUNT,PLT 260 K/uL (130-375); RED BLOOD CELL COUNT 4.38 M/uL (3.77-5.24); WHITE BLOOD CELL COUNT,WBC 8.8 K/uL (3.2-11.0)
[2023-06-14 13:04] LABS: CALCIUM 8.4 mg/dL (8.5-10.1); CREATININE 1.4 mg/dL (0.6-1.0); EST CRCL DRUG DOSING (CG) 21.49 mL/min
[2023-06-14 13:13] LABS: ANION GAP 11.7 mmol/L (5.0-14.0); POTASSIUM,K 2.7 mmol/L (3.6-5.2)
[2023-06-14 13:27] LABS: INFLUENZA A NAA NEGATIVE (NEGATIVE); INFLUENZA B NAA NEGATIVE (NEGATIVE); RESPIRATORY SYNCYTIAL VIR NAA NEGATIVE (NEGATIVE)
[2023-06-14 13:31] LABS: CORONAVIRUS COVID-19 NAA POSITIVE (NEGATIVE)
[2023-06-14] MEDS: Potassium Chloride 20 MEQ Tab.ER PO ONE (13:39)
[2023-06-14 14:09] VITALS: BP 108/53; PULSE 79
== END 2023-06-14 13:50 | disposition home or self-care (01) ==
LOC: JP.ED 11:48
DX: U07.1 COVID-19 (principal); R42 Dizziness and giddiness; E87.6 Hypokalemia; I10 Essential (primary) hypertension; E78.00 Pure hypercholesterolemia, unspecified; K21.9 Gastro-esophageal reflux disease without esophagitis; E11.9 Type 2 diabetes mellitus without complications; E03.9 Hypothyroidism, unspecified; Z79.899 Other long term (current) drug therapy; Z88.2 Allergy status to sulfonamides; Z88.8 Allergy status to other drugs, medicaments and biological substances
CPT/HCPCS: 0241U; 36415; 80048; 85025; 99285; A9270